=== PATIENT | female | born 1990 | race Caucasian/White ===

== ENCOUNTER 2019-03-13 21:14 | Emergency (ER) | payer SELFPAY ==
[2019-03-13 21:17] VITALS: BP 120/78; PULSE 100; RESP 16; TEMP 36.6; O2SAT 99; BMI 31.2
--- NOTE | 2019-03-13 21:20 | DI.RAD.S_ITS ---
PROCEDURE: XR ANKLE RT MIN 3V INDICATIONS: felt a pop in ankle, pain TECHNIQUE: 3 views of the ankle were acquired. COMPARISON: None. FINDINGS: Bones: No fractures or dislocations. Ankle mortise is normally aligned. No suspicious bony lesions. Soft tissues: No tibiotalar joint effusion. Achilles tendon appears normal. IMPRESSION: No acute radiographic findings. If pain persists, repeat study in 5-7 days is recommended to exclude occult fracture. Dictated by: Seble Yeh M.D. on 03/13/2019 at 21:54 Approved by: Seble Yeh M.D. on 03/13/2019 at 21:54
--- NOTE | 2019-03-13 21:55 | PC.NURSE ---
Pt Hx left ankle injury x 2 months ago. had an xray and wore an brace for 6 weeks. C/O popping sound today with pain 03/18. works on her feet all day and her ankle has never been the same. NAD. Talking on her phone. X ray taken. Will continue to monitor.
--- NOTE | 2019-03-13 23:09 | ED.LOWEXIN ---
HPI - Extremity Injury (Lower) General Chief Complaint: Extremity Injury, Lower Stated Complaint: RIGHT ANKLE PAIN Time Seen by Provider: 03/13/19 21:24 Source: patient Mode of arrival: ambulatory Limitations: no limitations History of Present Illness HPI Narrative: 28-year-old female nonsmoker presents with a chief complaint of left ankle pain which has been present since an original injury in August. She has had multiple sets of x-rays without any obvious findings and has episodes where she seems to be without symptoms and then a minimal repeat injury causes pain and swelling again of her left ankle. Her pain is worse with motion and improves with rest. She denies other injury. She denies any numbness, tingling or weakness. She denies any specific injury this time around but complains of pain with ambulating MD complaint: ankle injury Onset (ago): month(s) Type of Injury: unknown Place: other Severity: moderate Relieving factors: rest Exacerbating factors: weight bearing and movement Associated symptoms: swelling Other symptoms: none Related Data Allergies Allergy/AdvReac Type Severity Reaction Status Date / Time CODEINE Allergy Unknown Uncoded 03/13/19 21:20 PCN (PENICILLIN) Allergy Unknown Uncoded 03/13/19 21:20 Review of Systems Constitutional Denies chills, Denies fever(s), Denies lethargy and Denies weakness Eyes Denies change in vision, Denies eye discharge, Denies irritation and Denies loss of vision ENT Ears, Nose, Mouth, and Throat: Denies change in voice, Denies neck pain and Denies sore throat Cardiovascular Denies chest pain, Denies irregular heart rhythm, Denies lightheadedness, Denies palpitations, Denies dyspnea, Denies dyspnea on exertion and Denies orthopnea Respiratory Denies cough, Denies dyspnea, Denies dyspnea on exertion and Denies wheezing Gastrointestinal Gastrointestinal: Denies abdominal pain, Denies change in bowel habits, Denies diarrhea, Denies nausea and Denies vomiting Genitourinary Denies hematuria, Denies flank pain, Denies urinary incontinence and Denies urinary urgency Musculoskeletal Reports joint swelling, Reports limited range of motion and Denies neck pain Integumentary/Breasts Denies pruritus, Denies erythema, Denies rash and Denies wounds Neurologic Denies confusion, Denies loss of vision and Denies weakness Psychiatric Denies anxiety, Denies confusion, Denies depression, Denies homicidal ideation and Denies suicidal ideation Endocrine Denies palpitations Hematologic/Lymphatic Denies easy bruising Allergic/Immunologic Denies wheezing PFSH Social History Smoking Status: Current every day smoker Social History Smoking Status: Current every day smoker Exam Narrative Exam Narrative: GEN: AOx3 and in mild distress EYES: Pupils are equal, round, and reactive to light and accommodation. Extraoccular muscles are intact bilaterally. There is no subconjunctival hemorrhage or exudate. CHEST: Lungs are clear to auscultation bilaterally and free of wheezes, rales, or rhonchi. Heart rate is regular rhythm, there are no murmurs, clicks, rubs, or gallops. There is no chest wall tenderness. ABD: Abdomen is soft and nontender. There is no guarding or rebound. Bowel sounds are normal in all 4 quadrants. There is no mass or organomegaly. EXT: Pain with palpation of left ankle distal to lateral malleolus, no obvious deformity but minimal swelling present Full painless ROM of all extremities with no loss of sensation or strength. SKIN: Warm, pink, and dry. No erythema or rash Initial Vital Signs Initial Vital Signs: Vital Signs Temperature 97.8 F 03/13/19 21:17 Pulse Rate 100 H 03/13/19 21:17 Respiratory Rate 16 03/13/19 21:17 Blood Pressure 120/78 03/13/19 21:17 Pulse Oximetry 99 03/13/19 21:17 Course Orders Ordered: ED Orders 03/13/19 21:20 XR ankle RT min 3V Stat Vital Signs - 8 hr 03/13/19 23:31 Pulse Rate 71 Respiratory Rate 12 Blood Pressure 96/81 Pulse Oximetry 99 MDM - Extremity Injury (Lower) Imaging Data Ankle Xray: Radiologist's impression: [address] [address] XRay Report Signed Patient: Nazanin Lugo [facility]#: [id number] : 1990Acct:[id number] Age/Sex: 28 / FDate of Service: 03/13/19 Loc: ED Accession Number: [id number] Procedure: XR ankle RT min 3V Ordering Provider: Mustapha Torres D.O. PROCEDURE: XR ANKLE RT MIN 3V INDICATIONS: felt a pop in ankle, pain TECHNIQUE: 3 views of the ankle were acquired. COMPARISON: None. FINDINGS: Bones: No fractures or dislocations. Ankle mortise is normally aligned. No suspicious bony lesions. Soft tissues: No tibiotalar joint effusion. Achilles tendon appears normal. IMPRESSION: No acute radiographic findings. If pain persists, repeat study in 5-7 days is recommended to exclude occult fracture. Dictated by: Seble Yeh M.D. on 03/13/2019 at 21:54 Approved by: Seble Yeh M.D. on 03/13/2019 at 21:54 Discharge Plan Departure Patient Disposition: Home Clinical Impression: Ankle sprain and strain Discharge Date/Time: 03/13/19 23:32 Interventions: ED Discharge Assessment Last Done: 03/13/19 23:31 Instructions: DI for Ankle Sprain, DI for Ankle Pain Activity Restrictions/Additional Instructions: *You have been diagnosed with [ankle pain and sprain] *What to do: *Take medications as directed *Follow up with your primary care provider in 2-3 days, call for an appointment. Let them know you were seen in the Emergency Department and that we ask that you be seen in follow up *Return to ER if you should have any new, worsening or concerning symptoms Referrals: [facility] [Outside] Lian Leal MD [Physician] -
[2019-03-13 23:31] VITALS: BP 96/81; PULSE 71; RESP 12; O2SAT 99
--- NOTE | 2019-03-14 06:24 | ED_ITS ---
HPI - Extremity Injury (Lower) General Chief Complaint: Extremity Injury, Lower Stated Complaint: RIGHT ANKLE PAIN Time Seen by Provider: 03/13/19 21:24 Source: patient Mode of arrival: ambulatory Limitations: no limitations History of Present Illness HPI Narrative: 28-year-old female nonsmoker presents with a chief complaint of left ankle pain which has been present since an original injury in August. She has had multiple sets of x-rays without any obvious findings and has episodes where she seems to be without symptoms and then a minimal repeat injury causes pain and swelling again of her left ankle. Her pain is worse with motion and improves with rest. She denies other injury. She denies any numbness, tingling or weakness. She denies any specific injury this time around but complains of pain with ambulating MD complaint: ankle injury Onset (ago): month(s) Type of Injury: unknown Place: other Severity: moderate Relieving factors: rest Exacerbating factors: weight bearing and movement Associated symptoms: swelling Other symptoms: none Related Data Allergies Allergy/AdvReac Type Severity Reaction Status Date / Time CODEINE Allergy Unknown Uncoded 03/13/19 21:20 PCN (PENICILLIN) Allergy Unknown Uncoded 03/13/19 21:20 Review of Systems Constitutional Denies chills, Denies fever(s), Denies lethargy and Denies weakness Eyes Denies change in vision, Denies eye discharge, Denies irritation and Denies loss of vision ENT Ears, Nose, Mouth, and Throat: Denies change in voice, Denies neck pain and Denies sore throat Cardiovascular Denies chest pain, Denies irregular heart rhythm, Denies lightheadedness, Denies palpitations, Denies dyspnea, Denies dyspnea on exertion and Denies orthopnea Respiratory Denies cough, Denies dyspnea, Denies dyspnea on exertion and Denies wheezing Gastrointestinal Gastrointestinal: Denies abdominal pain, Denies change in bowel habits, Denies diarrhea, Denies nausea and Denies vomiting Genitourinary Denies hematuria, Denies flank pain, Denies urinary incontinence and Denies urinary urgency Musculoskeletal Reports joint swelling, Reports limited range of motion and Denies neck pain Integumentary/Breasts Denies pruritus, Denies erythema, Denies rash and Denies wounds Neurologic Denies confusion, Denies loss of vision and Denies weakness Psychiatric Denies anxiety, Denies confusion, Denies depression, Denies homicidal ideation and Denies suicidal ideation Endocrine Denies palpitations Hematologic/Lymphatic Denies easy bruising Allergic/Immunologic Denies wheezing PFSH Social History Smoking Status: Current every day smoker Social History Smoking Status: Current every day smoker Exam Narrative Exam Narrative: GEN: AOx3 and in mild distress EYES: Pupils are equal, round, and reactive to light and accommodation. Extraoccular muscles are intact bilaterally. There is no subconjunctival hemorrhage or exudate. CHEST: Lungs are clear to auscultation bilaterally and free of wheezes, rales, or rhonchi. Heart rate is regular rhythm, there are no murmurs, clicks, rubs, or gallops. There is no chest wall tenderness. ABD: Abdomen is soft and nontender. There is no guarding or rebound. Bowel sounds are normal in all 4 quadrants. There is no mass or organomegaly. EXT: Pain with palpation of left ankle distal to lateral malleolus, no obvious deformity but minimal swelling present Full painless ROM of all extremities with no loss of sensation or strength. SKIN: Warm, pink, and dry. No erythema or rash Initial Vital Signs Initial Vital Signs: Vital Signs Temperature 97.8 F 03/13/19 21:17 Pulse Rate 100 H 03/13/19 21:17 Respiratory Rate 16 03/13/19 21:17 Blood Pressure 120/78 03/13/19 21:17 Pulse Oximetry 99 03/13/19 21:17 Course Orders Ordered: ED Orders 03/13/19 21:20 XR ankle RT min 3V Stat Vital Signs - 8 hr 03/13/19 23:31 Pulse Rate 71 Respiratory Rate 12 Blood Pressure 96/81 Pulse Oximetry 99 MDM - Extremity Injury (Lower) Imaging Data Ankle Xray: Radiologist's impression: [address] [address] XRay Report Signed Patient: Nazanin Lugo [facility]#: [id number] : 1990Acct:[id number] Age/Sex: 28 / FDate of Service: 03/13/19 Loc: ED Accession Number: [id number] Procedure: XR ankle RT min 3V Ordering Provider: Mustapha Torres D.O. PROCEDURE: XR ANKLE RT MIN 3V INDICATIONS: felt a pop in ankle, pain TECHNIQUE: 3 views of the ankle were acquired. COMPARISON: None. FINDINGS: Bones: No fractures or dislocations. Ankle mortise is normally aligned. No suspicious bony lesions. Soft tissues: No tibiotalar joint effusion. Achilles tendon appears normal. IMPRESSION: No acute radiographic findings. If pain persists, repeat study in 5-7 days is recommended to exclude occult fracture. Dictated by: Seble Yeh M.D. on 03/13/2019 at 21:54 Approved by: Seble Yeh M.D. on 03/13/2019 at 21:54 Discharge Plan Departure Patient Disposition: Home Clinical Impression: Ankle sprain and strain Discharge Date/Time: 03/13/19 23:32 Interventions: ED Discharge Assessment Last Done: 03/13/19 23:31 Instructions: DI for Ankle Sprain, DI for Ankle Pain Activity Restrictions/Additional Instructions: *You have been diagnosed with [ankle pain and sprain] *What to do: *Take medications as directed *Follow up with your primary care provider in 2-3 days, call for an appointment. Let them know you were seen in the Emergency Department and that we ask that you be seen in follow up *Return to ER if you should have any new, worsening or concerning symptoms Referrals: [facility] [Outside] Lian Leal MD [Physician] -
== END 2019-03-13 23:32 | disposition home or self-care (01) ==
PROVIDERS: Emergency Provider Emergency Medicine
DX: S93.401A Sprain of unspecified ligament of right ankle, initial encounter (principal)
CPT/HCPCS: 73610; 99282; 99283

== ENCOUNTER 2021-07-01 16:52 | Emergency (ER) | payer OTHER, MEDICAID, SELFPAY ==
[2021-07-01 17:09] VITALS: BP 115/78; PULSE 115; RESP 22; TEMP 37.1; O2SAT 98; BMI 31.2
--- NOTE | 2021-07-01 18:00 | ED.FEMALEGU ---
HPI - Female Genitourinary <SHONA Sotelo Last Filed: 07/01/21 19:51> General Chief complaint: Urogenital-Female Stated complaint: POSS STREP/UTI Time Seen by Provider: 07/01/21 17:35 Source: patient Mode of arrival: Ambulatory Limitations: no limitations History of Present Illness HPI Narrative: Patient is a 31-year-old female presenting to the emergency department today for an evaluation of sore throat and dysuria that began yesterday. Patient reports pain in her shoulder that is worse with swallowing and an intermittent sharp pain with urination. She also reports symptoms of a T-max fever of 102? F today, chills, right lower quadrant abdominal pain with here, and nausea. No cough, vomiting, constipation, diarrhea, nasal congestion reported. No other concerns reported this time. Related Data Allergies Allergy/AdvReac Type Severity Reaction Status Date / Time codeine Allergy Verified 07/01/21 17:09 Penicillins Allergy Verified 07/01/21 17:09 Review of Systems <Sourav Gould PA-C - Last Filed: 07/01/21 19:51> Constitutional Constitutional: Reports chills, Reports fever(s), Denies lethargy and Denies weakness ENT Ears, Nose, Mouth, and Throat: Denies change in voice, Denies neck pain and Reports sore throat Cardiovascular Cardiovascular: Denies chest pain, Denies irregular heart rhythm, Denies lightheadedness, Denies palpitations, Denies dyspnea, Denies dyspnea on exertion and Denies orthopnea Respiratory Respiratory: Denies cough, Denies dyspnea, Denies dyspnea on exertion and Denies wheezing Gastrointestinal Gastrointestinal: Reports abdominal pain (Right lower quadrant), Denies change in bowel habits, Denies diarrhea, Reports nausea and Denies vomiting Musculoskeletal Musculoskeletal: Denies neck pain Integumentary/Breasts Skin/Breast: Denies pruritus, Denies erythema, Denies rash and Denies wounds Neurologic Neurologic: Denies weakness Endocrine Endocrine: Denies palpitations Allergic/Immunologic Allergic/Immunologic: Denies wheezing Patient History <SHONA Sotelo Last Filed: 07/01/21 19:51> alcohol intake frequency: a few times a month Substance Use Type: marijuana Exam <SHONA Sotelo Last Filed: 07/01/21 19:51> Narrative Exam Narrative: GENERAL: 31 year old patient appears stated age. Well-developed patient, in mild distress. HEAD: Atraumatic. Normocephalic. EYES: Pupils equal round and reactive. Extraocular motions intact. No scleral icterus. No injection or drainage. ENT: Nose without bleeding, purulent drainage. Throat without erythema, tonsillar hypertrophy or exudate. Airway patent. NECK: Trachea midline. Non tender CARDIOVASCULAR: Regular rate and rhythm without murmurs, gallops, or rubs. RESPIRATORY: Clear to auscultation. Breath sounds equal bilaterally. No wheezes, rales, or rhonchi. GASTROINTESTINAL: Abdomen soft, nondistended. Tenderness to palpation appreciated of the bilateral lower quadrants. Guarding appreciated at the left lower quadrant. EXTREMITIES: No edema or joint tenderness. BACK: Nontender without deformity or crepitance. No flank tenderness. NEURO: AOx3. SKIN: No rash or erythema of visible areas Initial Vital Signs Initial Vital Signs: Vital Signs Temperature 98.8 F 07/01/21 17:09 Pulse Rate 115 H 07/01/21 17:09 Respiratory Rate 22 07/01/21 17:09 Blood Pressure 115/78 07/01/21 17:09 Pulse Oximetry 98 07/01/21 17:09 <Jaspreet Baker DO - Last Filed: 07/01/21 20:43> Initial Vital Signs Initial Vital Signs: Vital Signs Temperature 98.8 F 07/01/21 17:09 Pulse Rate 115 H 07/01/21 17:09 Respiratory Rate 22 07/01/21 17:09 Blood Pressure 115/78 07/01/21 17:09 Pulse Oximetry 98 07/01/21 17:09 Course <Sourav Gould PA-C - Last Filed: 07/01/21 19:51> Course Course Narrative: Patient is a 31-year-old female presenting to the emergency department today for an evaluation of sore throat and dysuria that began yesterday. Urinalysis, G and C ordered. Rapid strep negative in ER, negative . Due to patient's elevated heart rate and fever will order CBC, CMP, lactate, blood cultures, respiratory panel, and CT of the abdomen and pelvis. Orders Ordered: ED Orders 07/01/21 17:30 COVID19 -Nasal swab/Pre-Proc Stat 07/01/21 17:57 Chlamydia Gonorrhea PCR -URINE Stat Urinalysis and Microscopic Stat 07/01/21 18:55 Complete Blood Count AUTO DIFF Stat Comprehensive Metabolic Panel Stat Lactate (Lactic Acid) Stat Respiratory Panel (Film Array) Stat 07/01/21 19:20 Blood Culture Stat 07/01/21 19:40 CT abdomen pelvis w con Stat Discontinued Medications Acetaminophen (Acetaminophen 325 Mg Tablet) 650 mg PO NOW ONE Stop: 07/01/21 19:05 Last Admin: 07/01/21 19:13 Dose: 650 mg Documented by: SYLVIA Reevaluation(s) Reevaluation #1: Patient states that she is feeling better overall but notes that she has been sweating patent. Lung still clear to auscultation on exam. Tympanic membranes clear bilaterally and are free of erythema or bulging Vital Signs Vital signs: Vital Signs - 8 hr 07/01/21 17:09 07/01/21 19:00 07/01/21 20:03 Temperature 98.8 F 102.4 F H 100.4 F H Pulse Rate 115 H 108 H 98 H Respiratory Rate 22 20 16 Blood Pressure 115/78 133/78 115/74 Pulse Oximetry 98 96 97 07/01/21 20:25 07/01/21 20:39 Temperature 100.4 F H 99.3 F Pulse Rate 103 H Respiratory Rate 18 Blood Pressure 110/74 Pulse Oximetry 97 <Jaspreet Baker, - Last Filed: 07/01/21 20:43> Orders Ordered: ED Orders 07/01/21 17:30 COVID19 -Nasal swab/Pre-Proc Stat 07/01/21 17:57 Chlamydia Gonorrhea PCR -URINE Stat Urinalysis and Microscopic Stat 07/01/21 18:55 Complete Blood Count AUTO DIFF Stat Comprehensive Metabolic Panel Stat Lactate (Lactic Acid) Stat Respiratory Panel (Film Array) Stat 07/01/21 19:20 Blood Culture Stat 07/01/21 19:40 CT abdomen pelvis w con Stat Discontinued Medications Acetaminophen (Acetaminophen 325 Mg Tablet) 650 mg PO NOW ONE Stop: 07/01/21 19:05 Last Admin: 07/01/21 19:13 Dose: 650 mg Documented by: SYLVIA Vital Signs Vital signs: Vital Signs - 8 hr 07/01/21 17:09 07/01/21 19:00 07/01/21 20:03 Temperature 98.8 F 102.4 F H 100.4 F H Pulse Rate 115 H 108 H 98 H Respiratory Rate 22 20 16 Blood Pressure 115/78 133/78 115/74 Pulse Oximetry 98 96 97 07/01/21 20:25 07/01/21 20:39 Temperature 100.4 F H 99.3 F Pulse Rate 103 H Respiratory Rate 18 Blood Pressure 110/74 Pulse Oximetry 97 MDM - Female Genitourinary <Sourav Gould PA-C - Last Filed: 07/01/21 19:51> Lab Data Result diagrams: 07/01/21 18:55 07/01/21 18:55 Labs: Lab Results 07/01/21 07/01/21 07/01/21 Range/Units 17:30 17:57 17:57 WBC (4.5-11.0) X10^3/uL RBC (4.0-5.2) X10^6/uL Hgb (12.0-16.0) g/dL Hct (36-46) % MCV (80-100) fL MCH (26-34) PG MCHC (30-36) % RDW (11.6-14.8) % Plt Count (150-400) X10^3/uL Neut % (Auto) (50-75) % Lymph % (Auto) (25-40) % [place] % (Auto) (3-14) % Eos % (Auto) (2-4) % Baso % (Auto) (0-2) % Neut # (Auto) (6938-9895) /uL Lymph # (Auto) (1483-3704) /uL [place] # (Auto) (0-900) /uL Eos # (Auto) (0-450) /uL Baso # (Auto) (0-100) /uL Sodium (137-145) mmol/L Potassium (3.4-5.1) mmol/L Chloride (98-107) mmol/L Carbon Dioxide (22-32) mmol/L BUN (7-17) mg/dL Creatinine (0.52-1.04) mg/dL Estimated GFR (>60) mL/min BUN/Creatinine Ratio (6-22) Glucose (70-100) mg/dL Lactate (0.7-2.1) mmol/L Calcium (8.4-10.2) mg/dL Total Bilirubin (0.2-1.3) mg/dL AST (14-36) IU/L ALT (<35) IU/L Alkaline Phosphatase (38-126) U/L Total Protein (6.3-8.2) g/dL Albumin (3.5-5.0) g/dL Globulin (1.7-4.1) g/dL Albumin/Globulin Ratio (1.0-2.8) Urine Color Yellow Urine Appearance Clear Urine pH 8.0 (4.5-8.0) Ur Specific [place] 1.015 (1.000-1.035) Urine Protein Trace H (Negative) Urine Glucose (UA) Trace H (Negative) g/dL Urine Ketones Negative (NEGATIVE) Urine Occult Blood Negative (Negative) Urine Nitrate Negative (Negative) Urine Bilirubin Negative (NEGATIVE) Urine Urobilinogen 1.0 (0.2) E.U./dL Ur Leukocyte Esterase Negative (NEGATIVE) Urine RBC None seen (0-5/HPF) Urine WBC None seen (0-5/HPF) Ur Squamous Epith Cells 1-5 /hpf (0-5/HPF) Amorphous Sediment 3+ Urine Bacteria None seen (None) Ur Culture Indicated? Cult not indicated Ur Chlamydia DNA (PCR) Not detected SARS-CoV-2 (PCR) Negative (Negative) N gonorrhoeae DNA (PCR) Not detected 07/01/21 07/01/21 07/01/21 Range/Units 18:55 18:55 18:55 WBC 14.1 H (4.5-11.0) X10^3/uL RBC 5.32 H (4.0-5.2) X10^6/uL Hgb 17.7 H (12.0-16.0) g/dL Hct 50.6 H (36-46) % MCV 95.1 (80-100) fL MCH 33.3 (26-34) PG MCHC 35.0 (30-36) % RDW 13.0 (11.6-14.8) % Plt Count 187 (150-400) X10^3/uL Neut % (Auto) 78.8 H (50-75) % Lymph % (Auto) 12.0 L (25-40) % [place] % (Auto) 8.8 (3-14) % Eos % (Auto) 0.2 L (2-4) % Baso % (Auto) 0.2 (0-2) % Neut # (Auto) 45631 H (8987-4205) /uL Lymph # (Auto) 1700 (0661-2267) /uL [place] # (Auto) 1200 H (0-900) /uL Eos # (Auto) 0 (0-450) /uL Baso # (Auto) 0 (0-100) /uL Sodium 135 L (137-145) mmol/L Potassium 4.0 (3.4-5.1) mmol/L Chloride 102 (98-107) mmol/L Carbon Dioxide 25 (22-32) mmol/L BUN 7 (7-17) mg/dL Creatinine 0.72 (0.52-1.04) mg/dL Estimated GFR > 60.0 (>60) mL/min BUN/Creatinine Ratio 9.7 (6-22) Glucose 93 (70-100) mg/dL Lactate 0.8 (0.7-2.1) mmol/L Calcium 10.6 H (8.4-10.2) mg/dL Total Bilirubin 0.6 (0.2-1.3) mg/dL AST 32 (14-36) IU/L ALT 15 (<35) IU/L Alkaline Phosphatase 89 (38-126) U/L Total Protein 8.3 H (6.3-8.2) g/dL Albumin 4.8 (3.5-5.0) g/dL Globulin 3.5 (1.7-4.1) g/dL Albumin/Globulin Ratio 1.4 (1.0-2.8) Urine Color Urine Appearance Urine pH (4.5-8.0) Ur Specific [place] (1.000-1.035) Urine Protein (Negative) Urine Glucose (UA) (Negative) g/dL Urine Ketones (NEGATIVE) Urine Occult Blood (Negative) Urine Nitrate (Negative) Urine Bilirubin (NEGATIVE) Urine Urobilinogen (0.2) E.U./dL Ur Leukocyte Esterase (NEGATIVE) Urine RBC (0-5/HPF) Urine WBC (0-5/HPF) Ur Squamous Epith Cells (0-5/HPF) Amorphous Sediment Urine Bacteria (None) Ur Culture Indicated? Ur Chlamydia DNA (PCR) SARS-CoV-2 (PCR) (Negative) N gonorrhoeae DNA (PCR) Point of Care Testing Test Results Negative Rapid Strep A Negative Urine Dip Bedside Urine Glucose Negative Bedside Urine Bilirubin - Negative Bedside Urine Ketone - Negative Urine Specific [place] 1.015 Bedside Urine Occult Blood - Negative Bedside Urine pH 8 Bedside Urine Protein - Negative Bedside Urine Urobilinogen +/- 1mg Bedside Urine Nitrite - Negative Bedside Urine Leukocytes - Negative Esterase MDM Narrative Medical decision making narrative: Patient is a 31-year-old female presenting to the emergency department today for an evaluation of sore throat and dysuria that began yesterday. To consider strep pharyngitis versus viral pharyngitis versus urinary tract infection versus kidney stone versus gastritis <Jaspreet Baker DO - Last Filed: 07/01/21 20:43> Lab Data Attestation: I reviewed the patient's lab results. Labs: Lab Results 07/01/21 07/01/21 07/01/21 Range/Units 17:30 17:57 17:57 WBC (4.5-11.0) X10^3/uL RBC (4.0-5.2) X10^6/uL Hgb (12.0-16.0) g/dL Hct (36-46) % MCV (80-100) fL MCH (26-34) PG MCHC (30-36) % RDW (11.6-14.8) % Plt Count (150-400) X10^3/uL Neut % (Auto) (50-75) % Lymph % (Auto) (25-40) % [place] % (Auto) (3-14) % Eos % (Auto) (2-4) % Baso % (Auto) (0-2) % Neut # (Auto) (1494-8940) /uL Lymph # (Auto) (4327-4485) /uL [place] # (Auto) (0-900) /uL Eos # (Auto) (0-450) /uL Baso # (Auto) (0-100) /uL Sodium (137-145) mmol/L Potassium (3.4-5.1) mmol/L Chloride (98-107) mmol/L Carbon Dioxide (22-32) mmol/L BUN (7-17) mg/dL Creatinine (0.52-1.04) mg/dL Estimated GFR (>60) mL/min BUN/Creatinine Ratio (6-22) Glucose (70-100) mg/dL Lactate (0.7-2.1) mmol/L Calcium (8.4-10.2) mg/dL Total Bilirubin (0.2-1.3) mg/dL AST (14-36) IU/L ALT (<35) IU/L Alkaline Phosphatase (38-126) U/L Total Protein (6.3-8.2) g/dL Albumin (3.5-5.0) g/dL Globulin (1.7-4.1) g/dL Albumin/Globulin Ratio (1.0-2.8) Urine Color Yellow Urine Appearance Clear Urine pH 8.0 (4.5-8.0) Ur Specific [place] 1.015 (1.000-1.035) Urine Protein Trace H (Negative) Urine Glucose (UA) Trace H (Negative) g/dL Urine Ketones Negative (NEGATIVE) Urine Occult Blood Negative (Negative) Urine Nitrate Negative (Negative) Urine Bilirubin Negative (NEGATIVE) Urine Urobilinogen 1.0 (0.2) E.U./dL Ur Leukocyte Esterase Negative (NEGATIVE) Urine RBC None seen (0-5/HPF) Urine WBC None seen (0-5/HPF) Ur Squamous Epith Cells 1-5 /hpf (0-5/HPF) Amorphous Sediment 3+ Urine Bacteria None seen (None) Ur Culture Indicated? Cult not indicated Ur Chlamydia DNA (PCR) Not detected SARS-CoV-2 (PCR) Negative (Negative) N gonorrhoeae DNA (PCR) Not detected 07/01/21 07/01/21 07/01/21 Range/Units 18:55 18:55 18:55 WBC 14.1 H (4.5-11.0) X10^3/uL RBC 5.32 H (4.0-5.2) X10^6/uL Hgb 17.7 H (12.0-16.0) g/dL Hct 50.6 H (36-46) % MCV 95.1 (80-100) fL MCH 33.3 (26-34) PG MCHC 35.0 (30-36) % RDW 13.0 (11.6-14.8) % Plt Count 187 (150-400) X10^3/uL Neut % (Auto) 78.8 H (50-75) % Lymph % (Auto) 12.0 L (25-40) % [place] % (Auto) 8.8 (3-14) % Eos % (Auto) 0.2 L (2-4) % Baso % (Auto) 0.2 (0-2) % Neut # (Auto) 30924 H (4584-0993) /uL Lymph # (Auto) 1700 (5084-0281) /uL [place] # (Auto) 1200 H (0-900) /uL Eos # (Auto) 0 (0-450) /uL Baso # (Auto) 0 (0-100) /uL Sodium 135 L (137-145) mmol/L Potassium 4.0 (3.4-5.1) mmol/L Chloride 102 (98-107) mmol/L Carbon Dioxide 25 (22-32) mmol/L BUN 7 (7-17) mg/dL Creatinine 0.72 (0.52-1.04) mg/dL Estimated GFR > 60.0 (>60) mL/min BUN/Creatinine Ratio 9.7 (6-22) Glucose 93 (70-100) mg/dL Lactate 0.8 (0.7-2.1) mmol/L Calcium 10.6 H (8.4-10.2) mg/dL Total Bilirubin 0.6 (0.2-1.3) mg/dL AST 32 (14-36) IU/L ALT 15 (<35) IU/L Alkaline Phosphatase 89 (38-126) U/L Total Protein 8.3 H (6.3-8.2) g/dL Albumin 4.8 (3.5-5.0) g/dL Globulin 3.5 (1.7-4.1) g/dL Albumin/Globulin Ratio 1.4 (1.0-2.8) Urine Color Urine Appearance Urine pH (4.5-8.0) Ur Specific [place] (1.000-1.035) Urine Protein (Negative) Urine Glucose (UA) (Negative) g/dL Urine Ketones (NEGATIVE) Urine Occult Blood (Negative) Urine Nitrate (Negative) Urine Bilirubin (NEGATIVE) Urine Urobilinogen (0.2) E.U./dL Ur Leukocyte Esterase (NEGATIVE) Urine RBC (0-5/HPF) Urine WBC (0-5/HPF) Ur Squamous Epith Cells (0-5/HPF) Amorphous Sediment Urine Bacteria (None) Ur Culture Indicated? Ur Chlamydia DNA (PCR) SARS-CoV-2 (PCR) (Negative) N gonorrhoeae DNA (PCR) Point of Care Testing Test Results Negative Rapid Strep A Negative Urine Dip Bedside Urine Glucose Negative Bedside Urine Bilirubin - Negative Bedside Urine Ketone - Negative Urine Specific [place] 1.015 Bedside Urine Occult Blood - Negative Bedside Urine pH 8 Bedside Urine Protein - Negative Bedside Urine Urobilinogen +/- 1mg Bedside Urine Nitrite - Negative Bedside Urine Leukocytes - Negative Esterase Imaging Data CT scan - abdomen/pelvis: Radiologist's Impression: [address] [address] [address] Scan Report Signed Patient: Nazanin Lugo MR#: [id number] : 1990 Acct:[id number] Age/Sex: 31 / F Date of Service: 07/01/21 Loc: ED Accession Number: [id number] ?? Procedure: CT abdomen pelvis w con Ordering Provider: Sourav Gould P.A-C PROCEDURE:? CT ABDOMEN PELVIS W CON ? INDICATIONS:? Abdominal pain, elevated WBC ? TECHNIQUE:? After the administration of intravenous contrast, axial sections acquired from the lung bases to the pubic symphysis.? Coronal and sagittal reformats were performed.? For radiation dose reduction, the following was used:? automated exposure control, adjustment of mA and/or kV according to patient size.? ? COMPARISON:? None. ? FINDINGS:? Image quality:? Excellent.? ? Lung bases:? Unremarkable. Heart:? No significant findings. ? ABDOMEN: Liver:? There is moderate hepatic steatosis.? No discrete hepatic lesion..? ? Gallbladder:? Within normal limits. Biliary ducts:? Unremarkable.? ? Pancreas:? Unremarkable.? ? Spleen:? Unremarkable.? ? Adrenal Glands:? Unremarkable.? ? Kidneys and Ureters:? Unremarkable.? ? ? Stomach and Bowel:? Stomach, small bowel loops, and colon are unremarkable.? Appendix is visualized and is within normal limits. Peritoneum:? No abnormal intraperitoneal fluid.? No free air.? ? Ventral Wall: ? No hernias.? Abdominal Nodes:? No retroperitoneal or mesenteric adenopathy by size criteria.? Vessels:? Aorta and inferior vena cava are normal in size.? ? PELVIS: Pelvic Organs:? Intrauterine device is seen.? There are suggestion of small bilateral ovarian cysts measures up to 1.3 cm in size in left ovary. Bladder:? Unremarkable.? ? Pelvic Nodes: No enlarged lymph nodes.? Miscellaneous: No hernias are seen. ? ? ? Bones:? Unremarkable.? IMPRESSION:? 1. No bowel obstruction or abnormal bowel wall thickening.? Normal appendix.? No free fluid or free air. 2. Intrauterine device is seen.? Suggestion of small bilateral ovarian cysts. 3. Hepatic steatosis, no discrete hepatic lesion. ? ? Dictated by: Chester Buchanan M.D. on 07/01/2021 at 20:14 ? ? Approved by: Chester Buchanan M.D. on 07/01/2021 at 20:17? MDM Narrative Medical decision making narrative: Patient is a 31-year-old female presenting to the emergency department today for an evaluation of sore throat and dysuria that began yesterday. To consider strep pharyngitis versus viral pharyngitis versus urinary tract infection versus kidney stone versus gastritis Dr Baker: Received turned over. Reviewed patient's history and physical. Performed my own independent exam. Patient has no headache. No neck pain. Low concern for meningitis. Rapid strep is negative. Her oropharynx is unremarkable. Has no cough. No shortness of breath. Low suspicion for pneumonia. The CT scan of her abdomen shows no signs of appendicitis. Urinalysis shows no signs of an infection. She has had some alternating diarrhea and constipation. No recent travel. No recent antibiotic use. No rashes. Unsure the exact etiology of the patient's symptoms. No indication for surgical consultation. No indication for antibiotics. Patient is COVID negative. Patient wanted to leave prior to the result of her respiratory panel and I felt that any positive result so this would not change the current plan for discharge home with symptomatic treatment. She was given return precautions and follow-up instructions. She expressed understanding and agreement. Discharge Plan Departure Patient Disposition: Home Clinical Impression: Fever, Sore throat, Abdominal pain Instructions: DI for Abdominal Pain-Adult Activity Restrictions/Additional Instructions: Your workup here in the emergency department is very reassuring. You opted to leave prior to your respiratory panel resulting. I recommend that you continue with Tylenol/ibuprofen for any fevers or body aches. Contact your primary doctor for a follow-up. Return to the emergency department for any new or worsening symptoms
[2021-07-01 18:04] LABS: Appearance Urine UA CLEAR; Bilirubin Urine UA NEGATIVE (NEGATIVE); Color Urine UA YELLOW; Glucose Urine UA TRACE g/dL (Negative); Ketones Urine UA NEGATIVE (NEGATIVE); Leukocyte Esterase Urine UA NEGATIVE (NEGATIVE); Nitrite Urine UA NEGATIVE (Negative); Occult Blood Urine UA NEGATIVE (Negative); Protein Urine UA TRACE (Negative); Specific Gravity Urine UA 1.015 (1.000-1.035)
[2021-07-01 18:17] LABS: RBC Urine None Seen (0-5/HPF); WBC Urine None Seen (0-5/HPF)
[2021-07-01 18:18] LABS: Amorphous Sediment Urine 3+; Bacteria Urine None Seen; Culture Indicated Urine Cult Not Indicated; Squamous Epithelial Cell Urine 1-5 /HPF (0-5/HPF)
[2021-07-01 18:21] LABS: COVID19 -Nasal RAPID Negative (Negative)
[2021-07-01 19:00] VITALS: BP 133/78; PULSE 108; RESP 20; TEMP 39.1; O2SAT 96
[2021-07-01] MEDS: ACETAMINOPHEN 325 MG TABLET 650 MG PO (19:13)
[2021-07-01 19:17] LABS: Add Manual Diff / Slide Review NO; Basophils Absolute Auto 0 /uL (0-100); Basophils Percent Auto 0.2 % (0-2); Eosinophils Absolute Auto 0 /uL (0-450); Eosinophils Percent Auto 0.2 % (2-4); Hematocrit 50.6 % (36-46); Hemoglobin 17.7 g/dL (12.0-16.0); Lymphocytes Absolute Auto 1700 /uL (1100-4500); Mean Corpuscular Hemoglobin 33.3 PG (26-34); Mean Corpuscular Volume 95.1 fL (80-100); Monocytes Absolute Auto 1200 /uL (0-900); Monocytes Percent Auto 8.8 % (3-14); Neutrophils Absolute Auto 11100 /uL (1500-7000); Neutrophils Percent Auto 78.8 % (50-75); Platelet Count 187 X10^3/uL (150-400); Red Blood Cell Count 5.32 X10^6/uL (4.0-5.2); White Blood Cell Count 14.1 X10^3/uL (4.5-11.0)
[2021-07-01 19:33] LABS: Urine N gonorrhoeae NOT DETECTED
[2021-07-01 19:38] LABS: Lactate (Lactic Acid) 0.8 mmol/L (0.7-2.1)
[2021-07-01 19:39] LABS: Alanine Aminotransferase 15 IU/L (<35); Albumin 4.8 g/dL (3.5-5.0); Albumin Globulin Ratio 1.4 (1.0-2.8); Alkaline Phosphatase 89 U/L (38-126); Aspartate Aminotransferase 32 IU/L (14-36); BUN Creatinine Ratio 9.7 (6-22); Bilirubin Total 0.6 mg/dL (0.2-1.3); Blood Urea Nitrogen 7 mg/dL (7-17); Calcium 10.6 mg/dL (8.4-10.2); Carbon Dioxide 25 mmol/L (22-32); Chloride 102 mmol/L (98-107); Estimated Glomerular Filt Rate > 60.0 mL/min (>60); Globulin 3.5 g/dL (1.7-4.1); Glucose 93 mg/dL (70-100); HEMOLYSIS < 15 (0-50); Sodium 135 mmol/L (137-145); Total Protein 8.3 g/dL (6.3-8.2)
[2021-07-01 19:40] LABS: Urine Chlamydia NOT DETECTED
--- NOTE | 2021-07-01 19:40 | DI.CT.S_ITS ---
PROCEDURE: CT ABDOMEN PELVIS W CON INDICATIONS: Abdominal pain, elevated WBC TECHNIQUE: After the administration of intravenous contrast, axial sections acquired from the lung bases to the pubic symphysis. Coronal and sagittal reformats were performed. For radiation dose reduction, the following was used: automated exposure control, adjustment of mA and/or kV according to patient size. COMPARISON: None. FINDINGS: Image quality: Excellent. Lung bases: Unremarkable. Heart: No significant findings. ABDOMEN: Liver: There is moderate hepatic steatosis. No discrete hepatic lesion.. Gallbladder: Within normal limits. Biliary ducts: Unremarkable. Pancreas: Unremarkable. Spleen: Unremarkable. Adrenal Glands: Unremarkable. Kidneys and Ureters: Unremarkable. Stomach and Bowel: Stomach, small bowel loops, and colon are unremarkable. Appendix is visualized and is within normal limits. Peritoneum: No abnormal intraperitoneal fluid. No free air. Ventral Wall: No hernias. Abdominal Nodes: No retroperitoneal or mesenteric adenopathy by size criteria. Vessels: Aorta and inferior vena cava are normal in size. PELVIS: Pelvic Organs: Intrauterine device is seen. There are suggestion of small bilateral ovarian cysts measures up to 1.3 cm in size in left ovary. Bladder: Unremarkable. Pelvic Nodes: No enlarged lymph nodes. Miscellaneous: No hernias are seen. Bones: Unremarkable. IMPRESSION: 1. No bowel obstruction or abnormal bowel wall thickening. Normal appendix. No free fluid or free air. 2. Intrauterine device is seen. Suggestion of small bilateral ovarian cysts. 3. Hepatic steatosis, no discrete hepatic lesion. Dictated by: Chester Buchanan M.D. on 07/01/2021 at 20:14 Approved by: Chester Buchanan M.D. on 07/01/2021 at 20:17
[2021-07-01 20:03] VITALS: BP 115/74; PULSE 98; RESP 16; TEMP 38; O2SAT 97
[2021-07-01 20:25] VITALS: TEMP 38
[2021-07-01 20:39] VITALS: BP 110/74; PULSE 103; RESP 18; TEMP 37.4; O2SAT 97
[2021-07-01 22:18] LABS: Adenovirus Not Detected (Not Detect); B. parapertussis Not Detected (Not Detecte); Bordetella pertussis Not Detected (Not Detecte); Chlamydophila pneumoniae Not Detected (Not Detect); Coronavirus 229E Not Detected (Not Detect); Coronavirus HKU1 Not Detected (Not Detect); Coronavirus NL 63 Not Detected (Not Detect); Coronavirus OC43 Not Detected (Not Detect); Human Metapneumovirus Not Detected (Not Detect); Human Rhinovirus/Enterovirus Not Detected (Not Detect); Influenza A Not Detected (Not Detect); Influenza B Not Detected (Not Detect); Parainfluenza Virus 1 Not Detected (Not Detect); Parainfluenza Virus 2 Not Detected (Not Detect); Parainfluenza Virus 3 Not Detected (Not Detect); Parainfluenza Virus 4 Not Detected (Not Detect); Respiratory Syncytial Virus Not Detected (Not Detect); SARS- CoV-2 Not Detected (Not Detecte)
[2021-07-01 22:19] LABS: Mycoplasma pneumoniae Not Detected (Not Detect)
== END 2021-07-01 20:41 | disposition home or self-care (01) ==
PROVIDERS: Emergency Medicine; Physician Assistant; Emergency Provider Emergency Medicine
DX: R50.9 Fever, unspecified (principal); J02.9 Acute pharyngitis, unspecified; R10.31 Right lower quadrant pain; R30.0 Dysuria; R11.0 Nausea; Z20.822 Contact with and (suspected) exposure to COVID-19
CPT/HCPCS: 36415; 74177; 80053; 81001; 81003; 81025; 83605; 85025; 87040; 87491; 87591; 87633; 87635; 87880; 99284; C9803; Q9967

== ENCOUNTER 2021-08-29 19:07 | Emergency (ER) | payer OTHER, MEDICAID, SELFPAY ==
[2021-08-29] VITALS (7 sets, daily range): BP systolic 103–114; BP diastolic 54–69; PULSE 74–99; RESP 16–18; TEMP 36.6; O2SAT 96–100
--- NOTE | 2021-08-29 19:22 | DI.RAD.S_ITS ---
PROCEDURE: XR CHEST 1V INDICATIONS: chest pain TECHNIQUE: One view of the chest was acquired. COMPARISON: None. FINDINGS: Surgical changes and devices: None. Lungs and pleura: There is bilateral perihilar bronchial wall thickening. Patchy indistinct airspace opacities are also demonstrated in the lung bases. No pleural effusions or pneumothorax. Mediastinum: Mediastinal contours appear normal. Heart size is normal. Bones and chest wall: No suspicious bony lesions. Overlying soft tissues appear unremarkable. IMPRESSION: 1. Bilateral bronchial wall thickening compatible with bronchiolitis. 2. Patchy indistinct airspace opacities bilaterally suggestive of atypical pneumonia. Dictated by: Scott Rhoades M.D. on 08/29/2021 at 20:31 Approved by: Scott Rhoades M.D. on 08/29/2021 at 20:33
[2021-08-29 19:38] LABS: Add Manual Diff / Slide Review NO; Basophils Absolute Auto 100 /uL (0-100); Basophils Percent Auto 0.6 % (0-2); Eosinophils Absolute Auto 200 /uL (0-450); Eosinophils Percent Auto 2.2 % (2-4); Hematocrit 48.1 % (36-46); Hemoglobin 16.9 g/dL (12.0-16.0); Lymphocytes Absolute Auto 2700 /uL (1100-4500); Lymphocytes Percent Auto 25.9 % (25-40); Mean Corpuscular HGB Conc 35.2 % (30-36); Mean Corpuscular Hemoglobin 33.3 PG (26-34); Mean Corpuscular Volume 94.5 fL (80-100); Monocytes Absolute Auto 600 /uL (0-900); Monocytes Percent Auto 6.1 % (3-14); Neutrophils Absolute Auto 6700 /uL (1500-7000); Neutrophils Percent Auto 65.2 % (50-75); Platelet Count 209 X10^3/uL (150-400); Red Blood Cell Count 5.09 X10^6/uL (4.0-5.2); Red Cell Distribution Width 12.8 % (11.6-14.8); White Blood Cell Count 10.4 X10^3/uL (4.5-11.0)
[2021-08-29 19:47] LABS: Alanine Aminotransferase 16 IU/L (<35); Albumin 4.4 g/dL (3.5-5.0); Albumin Globulin Ratio 1.3 (1.0-2.8); Alkaline Phosphatase 54 U/L (38-126); Aspartate Aminotransferase 27 IU/L (14-36); BUN Creatinine Ratio 12.1 (6-22); Bilirubin Total 0.6 mg/dL (0.2-1.3); Blood Urea Nitrogen 8 mg/dL (7-17); Calcium 10.4 mg/dL (8.4-10.2); Carbon Dioxide 28 mmol/L (22-32); Chloride 107 mmol/L (98-107); Creatine Kinase 43 U/L (30-135); Estimated Glomerular Filt Rate > 60.0 mL/min (>60); Globulin 3.3 g/dL (1.7-4.1); Glucose 97 mg/dL (70-100); HEMOLYSIS < 15 (0-50); Lipase 109 U/L (23-300); Magnesium 2.3 mg/dL (1.6-2.3); Potassium 3.7 mmol/L (3.4-5.1); Sodium 138 mmol/L (137-145); Total Protein 7.7 g/dL (6.3-8.2)
[2021-08-29 19:59] LABS: Troponin I < 0.012 ng/mL (0.01-0.034)
--- NOTE | 2021-08-29 21:09 | ED_ITS ---
HPI - Chest Pain General Chief Complaint: Chest Pain Stated Complaint: chest pain Time Seen by Provider: 08/29/21 20:59 Source: patient Mode of arrival: Ambulatory Limitations: no limitations History of Present Illness HPI narrative: 0 patient is a 31-year-old female who is a current smoker presenting with chest discomfort shortness of breath. She has started last night the center of her chest radiating out, constant in nature she does not feel like she can take a deep breath. She denies any fever chills she is coughing up some phlegm. She denies any hemoptysis. She also takes control, no prior history of blood clots. Related Data Previous Rx's Medication Instructions Recorded albuterol sulfate 90 mcg/actuation 2 puff INHALATION Q4-6H PRN #8.5 08/29/21 aerosol inhaler gram Allergies Allergy/AdvReac Type Severity Reaction Status Date / Time codeine Allergy Verified 07/01/21 17:09 Penicillins Allergy Verified 07/01/21 17:09 Review of Systems Review of Systems Narrative: GENERAL: Denies chills, fatigue, malaise, fever, sweats, travel HEENT: Denies sinus pain, ear pain, sore throat, difficulty swallowing, neck pain RESPIRATORY: Denies dyspnea, cough, wheezing, hemoptysis, sputum. CARDIOVASCULAR: See HPI GASTROINTESTINAL: Denies nausea, vomiting, abdominal pain, diarrhea, constipation, melena. : Denies dysuria, frequency, incontinence, hematuria, urinary retention, flank pain. MUSCULOSKELETAL: Denies weakness, joint pain, or bony pain SKIN: No rash, no erythema, no pruritus NEUROLOGIC: Denies weakness, dizziness, headache, numbness, change in speech, confusion PSYCHIATRIC: No concerning psychosocial issues. 12 point review of systems is negative except for those stated above and HPI Patient History Social History Smoking Status: Current every day smoker Smoking Status: Current every day smoker alcohol intake frequency: a few times a month Substance Use Type: marijuana Exam Initial Vital Signs Initial Vital Signs: Vital Signs Temperature 98 F 08/29/21 19:16 Pulse Rate 99 H 08/29/21 19:16 Respiratory Rate 18 08/29/21 19:16 Blood Pressure 103/69 08/29/21 19:16 Pulse Oximetry 100 08/29/21 19:16 GENERAL: Well-appearing, well-nourished and in no acute distress. HEENT: Head atraumatic,EOMI, pupils reactive, face symmetric, moist mucous membranes CARDIOVASCULAR: Regular rate and rhythm without murmurs, rubs or gallops. RESPIRATORY: Breath sounds equal bilaterally, no wheezes rales or rhonchi. ABDOMEN: Soft, nontender. Normoactive bowel sounds all 4 quadrants. No guarding or rebound. EXTREMITIES: Normal range of motion, no clubbing or edema. Neurovascularly intact NEUROLOGICAL: Alert and oriented x4.Normal gait and speech. SKIN: Warm, dry, no laceration, no petechiae, no rashes or lesions. Scores HEART Score Heart Score history: Slightly Suspicious Heart Score EKG: Normal Heart Score Age: < 45 years old Heart Score risk factors: No known risk factors Heart Score troponin: < or = to normal limit Heart Score Total: 0 PERC Score Age greater than or equal to 50 years: No Heart rate greater than or equal to 100 bpm: No Room Air O2 Sat less than 95%: No Unilateral leg swelling: No Recent trauma or surgery: No Hemoptysis: No Prior PE or DVT: No Hormone Use: Yes Total PERC Score: 1 Course Orders Ordered: ED Orders 08/29/21 19:22 XR chest 1V Stat EKG-12 Lead Stat 08/29/21 19:25 Complete Blood Count AUTO DIFF Stat Comprehensive Metabolic Panel Stat D Dimer Stat Lipase Stat Magnesium Stat Troponin & CK Cardiac Panel Stat 08/29/21 21:13 COVID19 -Nasal swab/Pre-Proc Stat Discontinued Medications Albuterol (Albuterol 2.5 Mg/3 Ml Neb (Adult)) 2.5 mg INH NOW ONE Stop: 08/29/21 21:06 Last Admin: 08/29/21 21:52 Dose: 2.5 mg Documented by: REGI Vital Signs Vital signs: Vital Signs - 8 hr 08/29/21 19:16 08/29/21 20:59 08/29/21 21:00 Temperature 98 F Pulse Rate 99 H 83 89 Respiratory Rate 18 Blood Pressure 103/69 104/54 L Pulse Oximetry 100 97 97 08/29/21 21:20 08/29/21 21:30 08/29/21 21:56 Temperature Pulse Rate 86 91 H 74 Respiratory Rate 16 Blood Pressure 104/54 L 108/63 Pulse Oximetry 96 98 98 08/29/21 22:00 Temperature Pulse Rate 83 Respiratory Rate Blood Pressure 114/67 Pulse Oximetry 99 MDM - Chest Pain Lab Data Result diagrams: 08/29/21 19:25 08/29/21 19:25 Labs: Lab Results 08/29/21 08/29/21 08/29/21 Range/Units 19:25 19:25 19:25 WBC 10.4 (4.5-11.0) X10^3/uL RBC 5.09 (4.0-5.2) X10^6/uL Hgb 16.9 H (12.0-16.0) g/dL Hct 48.1 H (36-46) % MCV 94.5 (80-100) fL MCH 33.3 (26-34) PG MCHC 35.2 (30-36) % RDW 12.8 (11.6-14.8) % Plt Count 209 (150-400) X10^3/uL Neut % (Auto) 65.2 (50-75) % Lymph % (Auto) 25.9 (25-40) % [place] % (Auto) 6.1 (3-14) % Eos % (Auto) 2.2 (2-4) % Baso % (Auto) 0.6 (0-2) % Neut # (Auto) 6700 (5946-7510) /uL Lymph # (Auto) 2700 (0999-9957) /uL [place] # (Auto) 600 (0-900) /uL Eos # (Auto) 200 (0-450) /uL Baso # (Auto) 100 (0-100) /uL D-Dimer < 200 (<230) ng/mL Sodium 138 (137-145) mmol/L Potassium 3.7 (3.4-5.1) mmol/L Chloride 107 (98-107) mmol/L Carbon Dioxide 28 (22-32) mmol/L BUN 8 (7-17) mg/dL Creatinine 0.66 (0.52-1.04) mg/dL Estimated GFR > 60.0 (>60) mL/min BUN/Creatinine Ratio 12.1 (6-22) Glucose 97 (70-100) mg/dL Calcium 10.4 H (8.4-10.2) mg/dL Magnesium 2.3 (1.6-2.3) mg/dL Total Bilirubin 0.6 (0.2-1.3) mg/dL AST 27 (14-36) IU/L ALT 16 (<35) IU/L Alkaline Phosphatase 54 (38-126) U/L Total Creatine Kinase 43 (30-135) U/L CK-MB (CK-2) TNP CK-MB (CK-2) Rel Index TNP Troponin I < 0.012 (0.01-0.034) ng/mL Total Protein 7.7 (6.3-8.2) g/dL Albumin 4.4 (3.5-5.0) g/dL Globulin 3.3 (1.7-4.1) g/dL Albumin/Globulin Ratio 1.3 (1.0-2.8) Lipase 109 (23-300) U/L SARS-CoV-2 (PCR) (Negative) 08/29/21 Range/Units 21:13 WBC (4.5-11.0) X10^3/uL RBC (4.0-5.2) X10^6/uL Hgb (12.0-16.0) g/dL Hct (36-46) % MCV (80-100) fL MCH (26-34) PG MCHC (30-36) % RDW (11.6-14.8) % Plt Count (150-400) X10^3/uL Neut % (Auto) (50-75) % Lymph % (Auto) (25-40) % [place] % (Auto) (3-14) % Eos % (Auto) (2-4) % Baso % (Auto) (0-2) % Neut # (Auto) (8940-4565) /uL Lymph # (Auto) (4901-9221) /uL [place] # (Auto) (0-900) /uL Eos # (Auto) (0-450) /uL Baso # (Auto) (0-100) /uL D-Dimer (<230) ng/mL Sodium (137-145) mmol/L Potassium (3.4-5.1) mmol/L Chloride (98-107) mmol/L Carbon Dioxide (22-32) mmol/L BUN (7-17) mg/dL Creatinine (0.52-1.04) mg/dL Estimated GFR (>60) mL/min BUN/Creatinine Ratio (6-22) Glucose (70-100) mg/dL Calcium (8.4-10.2) mg/dL Magnesium (1.6-2.3) mg/dL Total Bilirubin (0.2-1.3) mg/dL AST (14-36) IU/L ALT (<35) IU/L Alkaline Phosphatase (38-126) U/L Total Creatine Kinase (30-135) U/L CK-MB (CK-2) CK-MB (CK-2) Rel Index Troponin I (0.01-0.034) ng/mL Total Protein (6.3-8.2) g/dL Albumin (3.5-5.0) g/dL Globulin (1.7-4.1) g/dL Albumin/Globulin Ratio (1.0-2.8) Lipase (23-300) U/L SARS-CoV-2 (PCR) Negative (Negative) Imaging Data Chest x-ray: Radiologist's Impression: PROCEDURE:? XR CHEST 1V ? INDICATIONS:? chest pain ? TECHNIQUE:? One view of the chest was acquired.? ? COMPARISON:? None. ? FINDINGS:? ? Surgical changes and devices:? None.? ? Lungs and pleura:? There is bilateral perihilar bronchial wall thickening.? Patchy indistinct airspace opacities are also demonstrated in the lung bases.? No pleural effusions or pneumothorax.? ? Mediastinum:? Mediastinal contours appear normal.? Heart size is normal.? ? Bones and chest wall:? No suspicious bony lesions.? Overlying soft tissues herber ear unremarkable.? ? IMPRESSION:? ? 1. Bilateral bronchial wall thickening compatible with bronchiolitis. ? 2. Patchy indistinct airspace opacities bilaterally suggestive of atypical pneumonia. ? ? Dictated by: Scott Rhoades M.D. on 08/29/2021 at 20:31? ECG Data Interpretation: Normal sinus rhythm rate 83 AR interval 134 QRS 84 QTC 411 MDM Narrative Medical decision making narrative: Patient is having some chest discomfort and shortness breath however she is feeling better after albuterol. She is a smoker his I discussed with her that she needs to stop smoking. She has a low risk heart score and PERC score along with a negative D-dimer. Unlikely to be pulmonary embolism, symptoms not consistent with acute coronary syndrome has a negative troponin and normal EKG and no risk factors. A probable upper respiratory syndrome, she given a pr escription for albuterol since she did have some relief with it. Discharge Plan Departure Patient Disposition: Home Clinical Impression: Acute viral syndrome Instructions: DI for Viral Syndrome Activity Restrictions/Additional Instructions: *You have been diagnosed with viral syndrome *What to do: At this time x-ray shows probable virus. Blood work and other testing are overall reassuring. No issues with your heart. I recommend stop smoking to help your breathing. *Continue to take medications as directed Albuterol inhaler 1-2 puffs every 4 hours needed shortness of breath or chest di scomfort--> SENT TO [facility] IN [place] *Follow up with your primary care provider in 2-3 days or call [phone] *Return to ER if you should have increasing shortness of breath, chest pain, pal pitations or any new, worsening or concerning symptoms Prescriptions: New albuterol sulfate 90 mcg/actuation HFA aerosol inhaler 2 puff INHALATION Q4-6H PRN (Reason: shortness of breath or wheezing) Qty: 8.5 0RF
[2021-08-29 21:24] LABS: D Dimer < 200 ng/mL (<230)
[2021-08-29 21:34] LABS: COVID19 -Nasal RAPID Negative (Negative)
[2021-08-29] MEDS: ALBUTEROL 2.5 MG/3 ML NEB (ADULT) INH (21:52)
== END 2021-08-29 22:24 | disposition home or self-care (01) ==
PROVIDERS: Emergency Provider Emergency Medicine
DX: B34.9 Viral infection, unspecified (principal); F17.200 Nicotine dependence, unspecified, uncomplicated; Z20.822 Contact with and (suspected) exposure to COVID-19
CPT/HCPCS: 71045; 80053; 82550; 83690; 83735; 84484; 85025; 85379; 87635; 93005; 94640; 99283; 99284; C9803; J7613

== ENCOUNTER → 2022-06-18 10:56 | Outpatient (CLI) | payer OTHER, MEDICAID, SELFPAY | PROVIDERS: PCP Nurse Practitioner Family; Visit Provider Student in an Organized Health Care Education/Training Program | DX: R30.0 Dysuria (principal) | CPT/HCPCS: 81002; 87077; 87086; 87147; 87210 ==

== ENCOUNTER 2022-09-25 05:36 | Emergency (ER) | payer OTHER, MEDICAID, SELFPAY ==
[2022-09-25] VITALS (11 sets, daily range): BP systolic 115–141; BP diastolic 60–86; PULSE 61–85; RESP 18; TEMP 36.8; O2SAT 98–100; BMI 30.2
--- NOTE | 2022-09-25 06:20 | ED.GENADULT ---
HPI - General Adult <Jenni Wang MD - Last Filed: 10/01/22 18:11> General Chief complaint: Urogenital-Female Stated complaint: kidney pain Time Seen by Provider: 09/25/22 05:57 Source: patient Mode of arrival: Ambulatory History of Present Illness HPI narrative: 32-year-old woman with mild asthma presents with right flank pain that has been waxing and waning since 12/06 this morning. She got up to void notice the pain shortly thereafter. She complains of a low temperature last night she is had no menses since IUD was replaced in May. No prior history of kidney stones. She notes she is had a low-grade headache for the last week. She has not noticed significant dysuria or frequency. No vaginal discharge periods no nausea vomiting or diarrhea Related Data Home Medications Medication Instructions Recorded Confirmed levonorgestrel 20 mcg/24 hours (8 intrauterine 04/18/22 08/08/22 yrs) 52 mg intrauterine device (Mirena) Previous Rx's Medication Instructions Recorded albuterol sulfate 90 mcg/actuation 2 puff inhalation Q4-6H PRN 08/29/21 aerosol inhaler shortness of breath or wheezing #8.5 grams norelgestromin 150 mcg-e.estradiol 1 patch transdermal QWEEK #3 ea 04/18/22 35 mcg/24 hr weekly transderm patch (Xulane) phenazopyridine 100 mg tablet 100 mg PO TID PRN pain 6 doses #6 06/18/22 (Pyridium) tabs doxycycline hyclate 100 mg capsule 100 mg PO BID #14 caps 09/25/22 (Vibramycin) hydrocodone 5 mg-acetaminophen 325 1 tab PO Q4-6H PRN pain #10 tabs 09/25/22 mg tablet ketorolac 10 mg tablet 10 mg PO Q6H PRN pain #14 tabs 09/25/22 ondansetron 4 mg disintegrating 4 mg PO TID-QID PRN nausea and 09/25/22 tablet vomiting #10 tabs Allergies Allergy/AdvReac Type Severity Reaction Status Date / Time codeine Allergy Verified 08/08/22 13:35 Penicillins Allergy Verified 08/08/22 13:35 Review of Systems <Jenni Wang MD - Last Filed: 10/01/22 18:11> Review of Systems Narrative: Remainder of complete review of systems is otherwise unremarkable except for that included in the HPI. Patient History <Jenni Wang MD - Last Filed: 10/01/22 18:11> Social History Smoking Status: Current every day smoker Smoking Status: Current every day smoker alcohol intake frequency: a few times a month Substance Use Type: marijuana Exam <Jenni Wang MD - Last Filed: 10/01/22 18:11> Initial Vital Signs Initial Vital Signs: Vital Signs Temperature 98.3 F 09/25/22 06:09 Pulse Rate 85 09/25/22 06:09 Respiratory Rate 18 09/25/22 06:09 Blood Pressure 135/86 09/25/22 06:09 Pulse Oximetry 100 09/25/22 06:09 Oxygen Delivery Method 09/25/22 06:09 General: Healthy appearing, in no acute distress. Able to give a complete and coherent history. Well-nourished well-developed HEENT: Moist mucous membranes, normal sclera with reactive pupils, Respiratory: Lungs are clear to auscultation, no wheezing no rales no rhonchi. Full and symmetrical air movement Cardiac: Regular rate and rhythm no murmurs no bruits Abdomen: Soft, nontender, good bowel tones, mild right flank pain Skin: Warm and dry, no rashes Neurologic: Grossly neurologically intact with no obvious asymmetries or abnormalities Extremities: No trauma, well perfused Psych: Cooperative, appropriate insight and affect <Mustapha Torres DO - Last Filed: 09/25/22 11:19> Initial Vital Signs Initial Vital Signs: Vital Signs Temperature 98.3 F 09/25/22 06:09 Pulse Rate 85 09/25/22 06:09 Respiratory Rate 18 09/25/22 06:09 Blood Pressure 135/86 09/25/22 06:09 Pulse Oximetry 100 09/25/22 06:09 Oxygen Delivery Method 09/25/22 06:09 Course <Jenni Wang MD - Last Filed: 10/01/22 18:11> Orders Ordered: Discontinued Medications Sodium Chloride (Normal Saline 0.9%) 1,000 mls @ 1,000 mls/hr IV BOLUS ONE Stop: 09/25/22 07:45 Last Infusion: 09/25/22 09:05 Dose: 0 mls/hr Documented By: Admin: 09/25/22 07:59 Dose: 1,000 mls/hr Documented By: ALEJA Ketorolac Tromethamine (Ketorolac 30 Mg/Ml Vial) 15 mg IV NOW ONE Stop: 09/25/22 06:47 Last Admin: 09/25/22 07:59 Dose: 15 mg Documented By: BS Vital Signs Vital signs: Vital Signs - 8 hr 09/25/22 06:09 09/25/22 09:04 09/25/22 09:05 Temperature 98.3 F Pulse Rate 85 70 69 Respiratory Rate 18 Blood Pressure 135/86 Pulse Oximetry 100 98 98 Oxygen Delivery Method Room Air 09/25/22 09:05 09/25/22 09:15 09/25/22 09:15 Temperature Pulse Rate 72 Respiratory Rate Blood Pressure 122/72 120/71 Pulse Oximetry 98 Oxygen Delivery Method 09/25/22 09:30 09/25/22 09:30 09/25/22 09:46 Temperature Pulse Rate 72 70 Respiratory Rate Blood Pressure 120/79 Pulse Oximetry 98 98 Oxygen Delivery Method 09/25/22 09:46 09/25/22 10:00 09/25/22 10:09 Temperature Pulse Rate 65 61 Respiratory Rate Blood Pressure 134/69 Pulse Oximetry 98 99 Oxygen Delivery Method 09/25/22 10:09 Temperature Pulse Rate Respiratory Rate Blood Pressure 141/60 H Pulse Oximetry Oxygen Delivery Method <Mustapha Torres DO - Last Filed: 09/25/22 11:19> Orders Ordered: Discontinued Medications Sodium Chloride (Normal Saline 0.9%) 1,000 mls @ 1,000 mls/hr IV BOLUS ONE Stop: 09/25/22 07:45 Last Infusion: 09/25/22 09:05 Dose: 0 mls/hr Documented By: Admin: 09/25/22 07:59 Dose: 1,000 mls/hr Documented By: ALEJA Ketorolac Tromethamine (Ketorolac 30 Mg/Ml Vial) 15 mg IV NOW ONE Stop: 09/25/22 06:47 Last Admin: 09/25/22 07:59 Dose: 15 mg Documented By: ALEJA Reevaluation(s) Reevaluation #1: Patient feeling significant improvement after above-stated therapies Consultations Consultation #1: Dr. Calloway consulted regarding abnormal positioning of IUD, he will see patient at the bedside, please see his note for details of the visit Consultation #2: Discussed concerning findings on CT and ultrasound with on-call Radiology Vital Signs Vital signs: Vital Signs - 8 hr 09/25/22 06:09 09/25/22 09:04 09/25/22 09:05 Temperature 98.3 F Pulse Rate 85 70 69 Respiratory Rate 18 Blood Pressure 135/86 Pulse Oximetry 100 98 98 Oxygen Delivery Method Room Air 09/25/22 09:05 09/25/22 09:15 09/25/22 09:15 Temperature Pulse Rate 72 Respiratory Rate Blood Pressure 122/72 120/71 Pulse Oximetry 98 Oxygen Delivery Method 09/25/22 09:30 09/25/22 09:30 09/25/22 09:46 Temperature Pulse Rate 72 70 Respiratory Rate Blood Pressure 120/79 Pulse Oximetry 98 98 Oxygen Delivery Method 09/25/22 09:46 09/25/22 10:00 09/25/22 10:09 Temperature Pulse Rate 65 61 Respiratory Rate Blood Pressure 134/69 Pulse Oximetry 98 99 Oxygen Delivery Method 09/25/22 10:09 Temperature Pulse Rate Respiratory Rate Blood Pressure 141/60 H Pulse Oximetry Oxygen Delivery Method Medical Decision Making <Jenni Wang MD - Last Filed: 10/01/22 18:11> Lab Data 09/25/22 07:49 09/25/22 07:49 Labs: Lab Results 09/25/22 09/25/22 Range/Units 07:49 07:49 WBC 8.6 (4.5-11.0) X10^3/uL RBC 5.10 (4.0-5.2) X10^6/uL Hgb 16.7 H (12.0-16.0) g/dL Hct 48.5 H (36-46) % MCV 95.0 (80-100) fL MCH 32.8 (26-34) PG MCHC 34.5 (30-36) % RDW 13.0 (11.6-14.8) % Plt Count 206 (150-400) X10^3/uL Neut % (Auto) 66.1 (50-75) % Lymph % (Auto) 25.7 (25-40) % [place] % (Auto) 5.5 (3-14) % Eos % (Auto) 2.2 (2-4) % Baso % (Auto) 0.5 (0-2) % Neut # (Auto) 5700 (3885-4531) /uL Lymph # (Auto) 2200 (7453-4793) /uL [place] # (Auto) 500 (0-900) /uL Eos # (Auto) 200 (0-450) /uL Baso # (Auto) 0 (0-100) /uL Sodium 139 (137-145) mmol/L Potassium 4.4 (3.4-5.1) mmol/L Chloride 106 (98-107) mmol/L Carbon Dioxide 26 (22-32) mmol/L BUN 12 (7-17) mg/dL Creatinine 0.58 (0.52-1.04) mg/dL Estimated GFR > 60 (>60) mL/min BUN/Creatinine Ratio 20.7 (6-22) Glucose 90 (70-100) mg/dL Calcium 9.9 (8.4-10.2) mg/dL Total Bilirubin 0.5 (0.2-1.3) mg/dL AST 27 (14-36) IU/L ALT 15 (<35) IU/L Alkaline Phosphatase 62 (38-126) U/L Total Protein 7.8 (6.3-8.2) g/dL Albumin 4.4 (3.5-5.0) g/dL Globulin 3.4 (1.7-4.1) g/dL Albumin/Globulin Ratio 1.3 (1.0-2.8) Point of Care Testing Test Results Negative Urine Dip Bedside Urine Glucose Negative Bedside Urine Bilirubin - Negative Bedside Urine Ketone - Negative Urine Specific [place] 1.030 Bedside Urine Occult Blood - Negative Bedside Urine pH 6.0 Bedside Urine Protein - Negative Bedside Urine Urobilinogen - Negative Bedside Urine Nitrite - Negative Bedside Urine Leukocytes - Negative Esterase Point of care testing: Point of Care Testing Test Results Negative Urine Dip Bedside Urine Glucose Negative Bedside Urine Bilirubin - Negative Bedside Urine Ketone - Negative Urine Specific [place] 1.030 Bedside Urine Occult Blood - Negative Bedside Urine pH 6.0 Bedside Urine Protein - Negative Bedside Urine Urobilinogen - Negative Bedside Urine Nitrite - Negative Bedside Urine Leukocytes - Negative Esterase Imaging Data CT KUB: Radiologist's Impression: No acute findings. Punctate nonobstructing left renal calculi, hepatic steatosis. No hydronephrosis MDM Narrative Medical decision making narrative: CC: Right flank pain waxing and waning for the last 4 hours Complicating co-morbidities: IUD in place, she is not Corroborating data: Data collected from: patient, Differential considered: Pyelonephritis, ovarian cyst, hydronephrosis, ureterolithiasis, bladder infection, constipation, appendicitis, musculoskeletal, zoster Exam documented above, pertinent findings include: Mild right flank pain no skin changes Lab Test results independently reviewed as above. Pertinent findings: Imaging studies independently reviewed: No nephrolithiasis, appendicitis, ovarian cyst an IUD is appropriately placed. Gallbladder pancreas spleen and adrenal glands are all unremarkable Treatments: Re-evaluations: Discussion: Diagnosis: Disposition: see below, along with detailed discharge instructions that have been reviewed with patient as well as indications for ED re-evaluation and additional outpatient follow up <Mustapha Torres, - Last Filed: 09/25/22 11:19> Lab Data Labs: Lab Results 09/25/22 09/25/22 Range/Units 07:49 07:49 WBC 8.6 (4.5-11.0) X10^3/uL RBC 5.10 (4.0-5.2) X10^6/uL Hgb 16.7 H (12.0-16.0) g/dL Hct 48.5 H (36-46) % MCV 95.0 (80-100) fL MCH 32.8 (26-34) PG MCHC 34.5 (30-36) % RDW 13.0 (11.6-14.8) % Plt Count 206 (150-400) X10^3/uL Neut % (Auto) 66.1 (50-75) % Lymph % (Auto) 25.7 (25-40) % [place] % (Auto) 5.5 (3-14) % Eos % (Auto) 2.2 (2-4) % Baso % (Auto) 0.5 (0-2) % Neut # (Auto) 5700 (3280-5665) /uL Lymph # (Auto) 2200 (7737-7715) /uL [place] # (Auto) 500 (0-900) /uL Eos # (Auto) 200 (0-450) /uL Baso # (Auto) 0 (0-100) /uL Sodium 139 (137-145) mmol/L Potassium 4.4 (3.4-5.1) mmol/L Chloride 106 (98-107) mmol/L Carbon Dioxide 26 (22-32) mmol/L BUN 12 (7-17) mg/dL Creatinine 0.58 (0.52-1.04) mg/dL Estimated GFR > 60 (>60) mL/min BUN/Creatinine Ratio 20.7 (6-22) Glucose 90 (70-100) mg/dL Calcium 9.9 (8.4-10.2) mg/dL Total Bilirubin 0.5 (0.2-1.3) mg/dL AST 27 (14-36) IU/L ALT 15 (<35) IU/L Alkaline Phosphatase 62 (38-126) U/L Total Protein 7.8 (6.3-8.2) g/dL Albumin 4.4 (3.5-5.0) g/dL Globulin 3.4 (1.7-4.1) g/dL Albumin/Globulin Ratio 1.3 (1.0-2.8) Point of Care Testing Test Results Negative Urine Dip Bedside Urine Glucose Negative Bedside Urine Bilirubin - Negative Bedside Urine Ketone - Negative Urine Specific [place] 1.030 Bedside Urine Occult Blood - Negative Bedside Urine pH 6.0 Bedside Urine Protein - Negative Bedside Urine Urobilinogen - Negative Bedside Urine Nitrite - Negative Bedside Urine Leukocytes - Negative Esterase Point of care testing: Point of Care Testing Test Results Negative Urine Dip Bedside Urine Glucose Negative Bedside Urine Bilirubin - Negative Bedside Urine Ketone - Negative Urine Specific [place] 1.030 Bedside Urine Occult Blood - Negative Bedside Urine pH 6.0 Bedside Urine Protein - Negative Bedside Urine Urobilinogen - Negative Bedside Urine Nitrite - Negative Bedside Urine Leukocytes - Negative Esterase [facility] Narrative Medical decision making narrative: [0700] (Brian) Patient received in sign out from [Kathleen]. I have reviewed the clinical course and performed an independent history and physical exam. CT Pending 814 - call from radiologist (Dr. Cleaning) with concern that IUD is misplaced and perforating uterus. Recommends US, which has been ordered 08 - patient states that in summer of 2021 she was scheduled for routine replacement of IUD and her PCP had a difficult time removing it, she was then referred to our real estate salesperson department who obtained US noting abnormal placement. IUD was then removed and subsequently replaced in office two months later with Mirena IUD 904 - reached out to provider consumer lending manager for real estate salesperson (Shelby), still awaiting US read by radiology. CC: Right flank pain waxing and waning for the last 4 hours Complicating co-morbidities: IUD in place, she is not Corroborating data: Data collected from: patient, Differential considered: Pyelonephritis, ovarian cyst, hydronephrosis, ureterolithiasis, bladder infection, constipation, appendicitis, musculoskeletal, zoster Exam documented above, pertinent findings include: Mild right flank pain no skin changes Lab Test results independently reviewed as above. Pertinent findings: No significant abnormal findings Imaging studies independently reviewed: No nephrolithiasis, appendicitis, ovarian cyst an IUD is appropriately placed. Gallbladder pancreas spleen and adrenal glands are all unremarkable. Over read on CT scan, called by on-call Radiology noting suspected in proper position of IUD with possible uterine perforation. Ultrasound suggests uterine wall has been perforated by IUD Consults: Discussed with Radiology myself, discussed with on-call gynecology, please see Dr. Calloway's note for details. He evaluated patient at the bedside, remove the IUD and arrange for follow-up Treatments: Fluids, Toradol Re-evaluations: Significant improvement. Patient continues to feel well after IUD is removed by Dr. Calloway Discussion: Patient with lower abdominal and pelvic pain is otherwise healthy and has very reassuring labs. Initially CT was largely normal without evidence of kidney stone, free fluid, perforation or obstruction, over call by Radiology notes possible IUD malalignment which is confirmed by ultrasound. Gynecology was consulted and evaluated patient at bedside, removed IUD and arrange for follow-up, recommended doxycycline for 1 week. Disposition: see below, along with detailed discharge instructions that have been reviewed with patient as well as indications for ED re-evaluation and additional outpatient follow up Discharge Plan Departure Patient Disposition: Home Clinical Impression: Pelvic pain, IUD complication Instructions: DI for Intrauterine Device Removal Activity Restrictions/Additional Instructions: *You have been diagnosed with [pelvic pain with complication of IUD. *What to do: *Please continue to take your regular medications as directed. [x ] New medication prescriptions sent to your pharmacy: [ [facility]] [ ] New medication written as a paper prescription [ ] No new medications given *Please follow up with Dr. Calloway's office in the next few days, he stated that you should expect a call from them to help schedule this. If you do not hear from them in the next few days please contact their office at the number listed below and let them know you were seen in the emergency department and we would like you seen in follow-up *Return to Emergency Department if you should have any new, worsening or concerning symptoms, such as [fever greater than 101 F, shaking chills, worsening pain, persistent vomiting or other bothersome symptoms] Prescriptions: New doxycycline hyclate [Vibramycin] 100 mg capsule 100 mg PO BID Qty: 14 0RF hydrocodone-acetaminophen 5-325 mg tablet 1 tab PO Q4-6H PRN (Reason: pain) Qty: 10 0RF ketorolac 10 mg tablet 10 mg PO Q6H PRN (Reason: pain) Qty: 14 0RF ondansetron 4 mg tablet,disintegrating 4 mg PO TID-QID PRN (Reason: nausea and vomiting) Qty: 10 0RF No Action phenazopyridine [Pyridium] 100 mg tablet 100 mg PO TID PRN (Reason: pain) Qty: 6 0RF Mirena 20 mcg/24 hours (7 yrs) 52 mg intrauterine device intrauterine Xulane 150-35 mcg/24 hr patch weekly 1 patch transdermal QWEEK Qty: 3 2RF Rx Instructions: apply once weekly for 3 weeks of a 4-week cycle albuterol sulfate 90 mcg/actuation HFA aerosol inhaler 2 puff INHALATION Q4-6H PRN (Reason: shortness of breath or wheezing) Qty: 8.5 0RF Referrals: Adina Chanel ARNP [Primary Care Provider] - Moy Calloway MD [Physician] - Stand Alone Forms: Patient Portal/API, Work Release Note
--- NOTE | 2022-09-25 06:47 | DI.CT.S_ITS ---
PROCEDURE: CT KIDNEY URETER BLADDER (KUB) INDICATIONS: right flank pain TECHNIQUE: Axial sections were acquired from the lung bases to the pubic symphysis. Coronal and sagittal reformats were performed. For radiation dose reduction, the following was used: automated exposure control, adjustment of mA and/or kV according to patient size. COMPARISON: [facility], CT, CT ABDOMEN PELVIS W CON, 07/01/2021, 19:55. [facility], US, US PELVIC COMPLETE, 04/18/2022, 10:03. FINDINGS: Image quality: Excellent. Lung bases: Unremarkable. Heart: No significant findings. URINARY: Right Kidney: No stones or hydronephrosis. Right Ureter: No hydroureter. Left Kidney: No hydronephrosis. Punctate nonobstructing kidney stones x2. Left Ureter: No hydroureter. Bladder: Normal wall thickness. No stones. ABDOMEN: Liver: Unremarkable. Gallbladder: Unremarkable. Biliary ducts: Unremarkable. Pancreas: Unremarkable. Spleen: Unremarkable. Adrenal Glands: Unremarkable. Stomach and Bowel: Stomach, small bowel loops, and colon are unremarkable. The appendix is not dilated. Peritoneum: No abnormal intraperitoneal fluid. No free air. Ventral Wall: No significant hernia. Abdominal Nodes: No enlarged retroperitoneal or mesenteric lymph nodes. Vessels: Aorta and inferior vena cava are normal in size. PELVIS: Pelvic Organs: Anteverted uterus. IUD in the uterus. However, the inferior arm appears to project into the myometrium towards the urinary bladder. Pelvic Nodes: Unremarkable. Miscellaneous: No inguinal hernias are seen. Bones: No suspicious lesion. Small vertebral body osteophytes. IMPRESSION: 1. No acute inflammatory process. No free fluid. 2. No hydronephrosis. No obstructing kidney stones. 3. Punctate nonobstructing left kidney stones. No definite right kidney stones. 4. IUD may be malpositioned. Recommend further evaluation with pelvic ultrasound. Minor discrepancy with the overnight preliminary interpretation. IUD may be bowel position. Nonobstructing kidney stones are within the left kidney not right. Comment: Findings were discussed with Mustapha Torres at time of dictation. Dictated by: Rodney Cleaning M.D. on 09/25/2022 at 8:03 Approved by: Rodney Cleaning M.D. on 09/25/2022 at 8:16
[2022-09-25] MEDS: SODIUM CHLORIDE 0.9% 1,000 ML 1000 ML IV (07:59)
[2022-09-25] MEDS: KETOROLAC 30 MG/ML VIAL 15 MG IV (07:59)
[2022-09-25 08:00] LABS: Add Manual Diff / Slide Review NO; Basophils Absolute Auto 0 /uL (0-100); Basophils Percent Auto 0.5 % (0-2); Eosinophils Absolute Auto 200 /uL (0-450); Eosinophils Percent Auto 2.2 % (2-4); Hematocrit 48.5 % (36-46); Hemoglobin 16.7 g/dL (12.0-16.0); Lymphocytes Absolute Auto 2200 /uL (1100-4500); Lymphocytes Percent Auto 25.7 % (25-40); Mean Corpuscular HGB Conc 34.5 % (30-36); Mean Corpuscular Hemoglobin 32.8 PG (26-34); Monocytes Absolute Auto 500 /uL (0-900); Monocytes Percent Auto 5.5 % (3-14); Neutrophils Absolute Auto 5700 /uL (1500-7000); Neutrophils Percent Auto 66.1 % (50-75); Platelet Count 206 X10^3/uL (150-400); White Blood Cell Count 8.6 X10^3/uL (4.5-11.0)
[2022-09-25 08:15] LABS: Alanine Aminotransferase 15 IU/L (<35); Alkaline Phosphatase 62 U/L (38-126); Aspartate Aminotransferase 27 IU/L (14-36); BUN Creatinine Ratio 20.7 (6-22); Bilirubin Total 0.5 mg/dL (0.2-1.3); Blood Urea Nitrogen 12 mg/dL (7-17); Calcium 9.9 mg/dL (8.4-10.2); Carbon Dioxide 26 mmol/L (22-32); Chloride 106 mmol/L (98-107); Estimated Glomerular Filt Rate > 60 mL/min (>60); Glucose 90 mg/dL (70-100); Potassium 4.4 mmol/L (3.4-5.1); Sodium 139 mmol/L (137-145); Total Protein 7.8 g/dL (6.3-8.2)
--- NOTE | 2022-09-25 08:16 | DI.US.S_ITS ---
PROCEDURE: US PELVIC COMPLETE INDICATIONS: MALPOSITIONED IUD ON CT TECHNIQUE: Real-time scanning was performed of the pelvic organs, with image documentation. Additional endovaginal scanning was necessary due to incomplete visualization of the adnexal and endometrial structures by transabdominal scanning. COMPARISON: [facility], US, US PELVIC COMPLETE, 04/18/2022, 10:03. [facility], CT, CT KIDNEY URETER BLADDER (KUB), 09/25/2022, 7:01. FINDINGS: Uterus: Uterus is anteverted and normal in size at 8.8 x 4.2 x 6.0 cm. The myometrium is homogeneous. The endometrium measures 4 mm combined thickness. IUD is present in the lower uterine segment. It is noted that the inferior anterior aspect the IUD extends through the scar in the tip is abutting the bladder. Ovaries: The right ovary measures 2.0 x 3.3 x 2.2 cm, with a calculated ovarian volume of 7.5 cc. The left ovary measures 2.3 x 1.8 x 1.8 cm, with a calculated ovarian volume of 4.1 cc. There is a 1.8 cm focus of decreased echogenicity within the right ovary. Other: No pathologic free abdominal or pelvic fluid. IMPRESSION: IUD within the lower uterine segment, extending through these scar and abutting the bladder. Prominent follicle/small simple cyst in the right ovary. We strive to produce accurate, complete, and clear reports of imaging services. To assist us in improving patient care, this report was composed using standard report templates and voice recognition software. Therefore, it may contain abnormal punctuation, insertions and/or omissions. Occasional wrong-word or sound-alike substitutions may occur. Though we review the report and make efforts to correct it, we do recommend that the report be read carefully in proper context to recognize any text inaccuracies. Dictated by: Beth Jonas M.D. on 09/25/2022 at 9:35 Approved by: Beth Jonas M.D. on 09/25/2022 at 9:38
--- NOTE | 2022-09-25 10:38 | PM.CN ---
History of Present Illness Consult details Date Patient Seen: 09/25/22 Time Patient Seen: 10:38 Chief complaint: kidney pain Reason for consult: Embedded IUD on US Requesting provider: Mustapha Torres Narrative: Nazanin is a 32 yo , LMP uncertain due to Mirena IUD in situ since May 2022. This was her 2nd IUD after an earlier one became embedded. She presents to the ED with RLQ/R flank pain and as part of her workup, a pelvic US was obtained which shows: FINDINGS:? ?? Uterus:? Uterus is anteverted and normal in size at 8.8 x 4.2 x 6.0 cm. The myometrium is homogeneous. ? The endometrium measures 4 mm combined thickness.? IUD is present in the lower uterine segment.? It is noted that the inferior anterior aspect the IUD extends through the scar in the tip is abutting the bladder. ? Ovaries:? The right ovary measures 2.0 x 3.3 x 2.2 cm, with a calculated ovarian volume of 7.5 cc. The left ovary measures 2.3 x 1.8 x 1.8 cm, with a calculated ovarian volume of 4.1 cc.? There is a 1.8 cm focus of decreased echogenicity within the right ovary. ? Other:? No pathologic free abdominal or pelvic fluid.? ? IMPRESSION:? ? IUD within the lower uterine segment, extending through these scar and abutting the bladder. ? Prominent follicle/small simple cyst in the right ovary. Meds Home Medications and Allergies Home Medications Medication Instructions Recorded Confirmed Type albuterol sulfate 90 mcg/actuation 2 puff inhalation Q4-6H PRN 08/29/21 08/08/22 Rx aerosol inhaler shortness of breath or wheezing #8.5 grams levonorgestrel 20 mcg/24 hours (8 intrauterine 04/18/22 08/08/22 History yrs) 52 mg intrauterine device (Mirena) norelgestromin 150 mcg-e.estradiol 1 patch transdermal QWEEK #3 ea 04/18/22 08/08/22 Rx 35 mcg/24 hr weekly transderm patch (Xulane) phenazopyridine 100 mg tablet 100 mg PO TID PRN pain 6 doses #6 06/18/22 08/08/22 Rx (Pyridium) tabs doxycycline hyclate 100 mg capsule 100 mg PO BID #14 caps 09/25/22 Rx (Vibramycin) hydrocodone 5 mg-acetaminophen 325 1 tab PO Q4-6H PRN pain #10 tabs 09/25/22 Rx mg tablet ketorolac 10 mg tablet 10 mg PO Q6H PRN pain #14 tabs 09/25/22 Rx ondansetron 4 mg disintegrating 4 mg PO TID-QID PRN nausea and 09/25/22 Rx tablet vomiting #10 tabs Allergies Allergy/AdvReac Type Severity Reaction Status Date / Time codeine Allergy Verified 08/08/22 13:35 Penicillins Allergy Verified 08/08/22 13:35 Review of Systems Review of Systems Narrative: Problem-specific ROS positives included in HPI Exam Vital Signs (past 8 hours): - 09/25/22 06:09 09/25/22 09:04 09/25/22 09:05 Temperature 98.3 F Pulse Rate 85 70 69 Respiratory Rate 18 Blood Pressure 135/86 Pulse Oximetry 100 98 98 Oxygen Delivery Method Room Air 09/25/22 09:05 09/25/22 09:15 09/25/22 09:15 Temperature Pulse Rate 72 Respiratory Rate Blood Pressure 122/72 120/71 Pulse Oximetry 98 Oxygen Delivery Method 09/25/22 09:30 09/25/22 09:30 09/25/22 09:46 Temperature Pulse Rate 72 70 Respiratory Rate Blood Pressure 120/79 Pulse Oximetry 98 98 Oxygen Delivery Method 09/25/22 09:46 09/25/22 10:00 09/25/22 10:09 Temperature Pulse Rate 65 61 Respiratory Rate Blood Pressure 134/69 Pulse Oximetry 98 99 Oxygen Delivery Method 09/25/22 10:09 Temperature Pulse Rate Respiratory Rate Blood Pressure 141/60 H Pulse Oximetry Oxygen Delivery Method Oxygen Delivery Method Room Air [facility] Head: normal to inspection, normocephalic and atraumatic Eyes General: appearance normal, both eyes and all related structures Resp Effort & Inspection: normal respiratory effort and able to speak in complete sentences GI Inspection: normal to inspection Palpation: soft and no hepatosplenomegaly External Female Exam: normal external appearance Speculum Exam - Vagina: normal appearance of the vagina and normal vaginal discharge Speculum Exam - Cervix: normal appearance of the cervix, cervical os open and other (IUD strings visible) Bimanual Exam- Vagina & Uterus: uterine size normal OB/External & Speculum: cervical os open Objective Labs Result Diagrams: 09/25/22 07:49 09/25/22 07:49 Labs: Laboratory Results - last 24 hr 09/25/22 09/25/22 07:49 07:49 WBC 8.6 RBC 5.10 Hgb 16.7 H Hct 48.5 H MCV 95.0 MCH 32.8 MCHC 34.5 RDW 13.0 Plt Count 206 Neut % (Auto) 66.1 Lymph % (Auto) 25.7 [place] % (Auto) 5.5 Eos % (Auto) 2.2 Baso % (Auto) 0.5 Neut # (Auto) 5700 Lymph # (Auto) 2200 [place] # (Auto) 500 Eos # (Auto) 200 Baso # (Auto) 0 Sodium 139 Potassium 4.4 Chloride 106 Carbon Dioxide 26 BUN 12 Creatinine 0.58 Estimated GFR > 60 BUN/Creatinine Ratio 20.7 Glucose 90 Calcium 9.9 Total Bilirubin 0.5 AST 27 ALT 15 Alkaline Phosphatase 62 Total Protein 7.8 PFSH Tobacco & Substance Use Smoking Status: Current every day smoker Assessment & Plan Assessment and plan (1) Malpositioned IUD: Status: Acute Plan It does not seem likely that the patient's malpositioned/embedded IUD is responsible for her right-sided/right lower quadrant/right flank pain. After discussing all options with the patient and the potential risks associated with an embedded IUD in her previous scar, the decision was made to remove the IUD in the emergency department. After verbal consent, a speculum was placed in the vagina, and the strings visualized protruding through the cervical os. An alligator forcep was then used to grasp the strings and with gentle but firm traction, an intact Mirena IUD was removed with minimal to moderate patient discomfort. She will be initiated on Vibramycin 100 mg p.o. b.i.d. x7 days and follow-up will be arranged in our office. We discussed the possibility of inserting a Nexplanon so as to continue the on menorrhea which the patient has enjoyed with the Mirena IUD. A member of my staff contact the patient to make arrangements for her next visit. Time Spent With Patient Time with patient: 30 to 49 minutes with 50% spent counseling/coordinating care Critical Care time: I spent a total of [] minutes of critical care time on this patient's care today; this time is exclusive of procedural time.
[2022-09-28 15:59] LABS: Albumin 4.4 g/dL (3.5-5.0); Albumin Globulin Ratio 1.3 (1.0-2.8); Globulin 3.4 g/dL (1.7-4.1); HEMOLYSIS 28 (0-50)
== END 2022-09-25 11:45 | disposition home or self-care (01) ==
PROVIDERS: Emergency Medicine; Emergency Provider Emergency Medicine; PCP Nurse Practitioner Family
DX: R10.2 Pelvic and perineal pain (principal); T83.32XA Displacement of intrauterine contraceptive device, initial encounter
CPT/HCPCS: 36415; 74176; 76830; 76856; 80053; 81003; 81025; 85025; 96361; 96374; 99283; 99284; J1885

== ENCOUNTER 2023-12-07 12:28 | Emergency (ER) | payer OTHER, MEDICAID, SELFPAY ==
[2023-12-07 12:31] VITALS: BP 142/66; PULSE 86; RESP 16; TEMP 37.1; O2SAT 98; BMI 33.2
[2023-12-07 13:12] LABS: Add Manual Diff / Slide Review NO; Basophils Absolute Auto 0 /uL (0-100); Basophils Percent Auto 0.4 % (0-2); Eosinophils Absolute Auto 100 /uL (0-450); Eosinophils Percent Auto 1.8 % (2-4); Hematocrit 47.2 % (36-46); Hemoglobin 16.4 g/dL (12.0-16.0); Lymphocytes Absolute Auto 2200 /uL (1100-4500); Lymphocytes Percent Auto 27.6 % (25-40); Mean Corpuscular HGB Conc 34.7 % (30-36); Mean Corpuscular Hemoglobin 33.2 PG (26-34); Mean Corpuscular Volume 95.9 fL (80-100); Monocytes Absolute Auto 500 /uL (0-900); Monocytes Percent Auto 6.8 % (3-14); Neutrophils Absolute Auto 5000 /uL (1500-7000); Neutrophils Percent Auto 63.4 % (50-75); Platelet Count 205 X10^3/uL (150-400); Red Blood Cell Count 4.93 X10^6/uL (4.0-5.2); Red Cell Distribution Width 13.1 % (11.6-14.8)
[2023-12-07 13:19] LABS: Prothrombin Time 11.1 SECONDS (9.4-12.5)
[2023-12-07 13:21] LABS: PTT Partial Thromboplastin Tim 34 SECONDS (25.1-36.5)
[2023-12-07 13:23] LABS: Alanine Aminotransferase 17 IU/L (<35); Albumin 4.2 g/dL (3.5-5.0); Albumin Globulin Ratio 1.4 (1.0-2.8); Alkaline Phosphatase 62 U/L (38-126); Aspartate Aminotransferase 31 IU/L (14-36); BUN Creatinine Ratio 18.8 (6-22); Bilirubin Total 0.8 mg/dL (0.2-1.3); Blood Urea Nitrogen 12 mg/dL (7-17); Calcium 9.8 mg/dL (8.4-10.2); Carbon Dioxide 26 mmol/L (22-32); Chloride 110 mmol/L (98-107); Estimated Glomerular Filt Rate > 60 mL/min (>60); Globulin 3.1 g/dL (1.7-4.1); Glucose 108 mg/dL (70-100); HEMOLYSIS < 15 (0-50); Potassium 3.9 mmol/L (3.4-5.1); Sodium 139 mmol/L (137-145); Total Protein 7.3 g/dL (6.3-8.2)
--- NOTE | 2023-12-07 13:32 | ED_ITS ---
HPI - GI Bleed <Minna Washington PA-C - Last Filed: 12/07/23 16:27> General Chief complaint: GI Bleed Stated complaint: blood in stool/ABD pain/lethargy Time Seen by Provider: 12/07/23 13:32 Source: patient Mode of arrival: Ambulatory History of Present Illness HPI Narrative: Patient is a 33-year-old female presenting for evaluation of dull bilateral lower abdominal discomfort x2 days and bloody stool this morning. She reports feeling nauseated and increased fatigue over the last 4 days. She reports that she has had a little bit of diarrhea, but states that it has been occasional. She reports that bowel movements seem to worsen the feeling of her lower abdominal discomfort. She states that occasionally this dull pressure feeling in her lower abdomen goes away and then returns throughout the day. She reports a low grade fever around 100 F earlier this week, but states she has not felt fever since. She reports her last bowel movement was this morning and formed. She states that she noticed dark blood seemed to be mixed in with the stool this morning. Denies any recent ingestion of beats. She denies noticing any clots or having any sensation of itching or feeling any hemorrhoids. She denies any abdominal surgeries other than C sections for the of her children. She denies coughing, sore throat or nasal congestion. She states that her appetite has been decreased but she has been able to eat normal foods. She denies any pain with urination or back pain or flank pain. 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 She states that it acts up when she is sick and recently she has been having increased numbness in her fingers. She was seen in the ER in September 2022 and diagnosed with displacement of IUD. She states she does not have an IUD at this time. Related Data Previous Rx's Medication Instructions Recorded ondansetron HCl 4 mg tablet 4 mg PO Q8H PRN nausea and 12/07/23 vomiting #7 tabs Allergies Allergy/AdvReac Type Severity Reaction Status Date / Time codeine Allergy Verified 10/03/22 10:04 Penicillins Allergy Verified 10/03/22 10:04 Review of Systems <Minna Washington PA-C - Last Filed: 12/07/23 16:27> Review of Systems Narrative: See HPI Patient History <Minna Washington PA-C - Last Filed: 12/07/23 16:27> Social History Smoking Status: Current every day smoker Smoking Status: Current every day smoker tobacco type: cigarettes alcohol intake frequency: a few times a month Substance Use Type: marijuana Exam <Minna Washington PA-C - Last Filed: 12/07/23 16:27> Initial Vital Signs Initial Vital Signs: Vital Signs Temperature 98.8 F 12/07/23 12:31 Pulse Rate 86 12/07/23 12:31 Respiratory Rate 16 12/07/23 12:31 Blood Pressure 142/66 H 12/07/23 12:31 Pulse Oximetry 98 12/07/23 12:31 Oxygen Delivery Method Room Air 12/07/23 12:31 GENERAL: 33 year old patient appears stated age. Well-developed patient, in no acute distress. HEAD: Atraumatic. Normocephalic. EYES: Pupils equal round and reactive. No scleral icterus. No injection or drainage. NECK: Trachea midline. Non tender. CARDIOVASCULAR: Regular rate and rhythm without murmurs, gallops, or rubs. RESPIRATORY: Clear to auscultation. Breath sounds equal bilaterally. No wheezes, rales, or rhonchi. GASTROINTESTINAL: Bowel sounds x4, dull to percussion throughout, abdomen soft and nondistended, negative Rose's sign, increased tenderness to palpation in right and left bilateral lower quadrants, RN Marielle Stone present as operations agent, digital rectal exam performed and hemoccult, no evidence hemorrhoids on exam around anus, no hemorrhoids palpated, EXTREMITIES: No edema or joint tenderness. Posterior tibialis 2+ bilaterally BACK: Nontender without deformity or crepitance. No flank tenderness, no bilateral CVA tenderness NEURO: AOx3. SKIN: No rash or erythema of visible areas <Scooby Doyle MD - Last Filed: 12/07/23 19:04> Initial Vital Signs Initial Vital Signs: Vital Signs Temperature 98.8 F 12/07/23 12:31 Pulse Rate 86 12/07/23 12:31 Respiratory Rate 16 12/07/23 12:31 Blood Pressure 142/66 H 12/07/23 12:31 Pulse Oximetry 98 12/07/23 12:31 Oxygen Delivery Method Room Air 12/07/23 12:31 Course <Minna Washington PA-C - Last Filed: 12/07/23 16:27> Orders Ordered: ED Orders 12/07/23 12:40 Urine Microscopic Stat 12/07/23 13:00 Complete Blood Count AUTO DIFF Stat Comprehensive Metabolic Panel Stat Lipase Stat PTT Partial Thromboplastin Brock Stat Prothrombin Time INR Stat 12/07/23 14:14 CT abdomen pelvis w con Stat 12/07/23 14:38 GI Panel (Film Array) Stat Discontinued Medications Ondansetron HCl (Ondansetron 4 Mg/2 Ml Inj) 4 mg IV NOW PRN PRN Reason: Nausea And Vomiting Last Admin: 12/07/23 16:29 Dose: 4 mg Documented By: JOHN Ondansetron HCl (Ondansetron 4 Mg Odt) 4 mg SL NOW PRN PRN Reason: Nausea And Vomiting Pantoprazole Sodium (Pantoprazole 40 Mg Vial) 80 mg IV NOW ONE Stop: 12/07/23 12:37 Last Admin: 12/07/23 14:35 Dose: Not Given Documented By: ALEJA Vital Signs Vital signs: Vital Signs - 8 hr 12/07/23 12:31 12/07/23 15:04 Temperature 98.8 F 98.5 F Pulse Rate 86 70 Respiratory Rate 16 16 Blood Pressure 142/66 H 127/77 Pulse Oximetry 98 99 Oxygen Delivery Method Room Air Room Air <Scooby Doyle MD - Last Filed: 12/07/23 19:04> Orders Ordered: ED Orders 12/07/23 12:40 Urine Microscopic Stat 12/07/23 13:00 Complete Blood Count AUTO DIFF Stat Comprehensive Metabolic Panel Stat Lipase Stat PTT Partial Thromboplastin Brock Stat Prothrombin Time INR Stat 12/07/23 14:14 CT abdomen pelvis w con Stat 12/07/23 14:38 GI Panel (Film Array) Stat Discontinued Medications Ondansetron HCl (Ondansetron 4 Mg/2 Ml Inj) 4 mg IV NOW PRN PRN Reason: Nausea And Vomiting Last Admin: 12/07/23 16:29 Dose: 4 mg Documented By: JOHN Ondansetron HCl (Ondansetron 4 Mg Odt) 4 mg SL NOW PRN PRN Reason: Nausea And Vomiting Pantoprazole Sodium (Pantoprazole 40 Mg Vial) 80 mg IV NOW ONE Stop: 12/07/23 12:37 Last Admin: 12/07/23 14:35 Dose: Not Given Documented By: BS Vital Signs Vital signs: Vital Signs - 8 hr 12/07/23 12:31 12/07/23 15:04 Temperature 98.8 F 98.5 F Pulse Rate 86 70 Respiratory Rate 16 16 Blood Pressure 142/66 H 127/77 Pulse Oximetry 98 99 Oxygen Delivery Method Room Air Room Air MDM - GI Bleed <Minna Washington PA-C - Last Filed: 12/07/23 16:27> Lab Data 12/07/23 13:00 12/07/23 13:00 Labs: Lab Results 12/07/23 12/07/23 12/07/23 Range/Units 12:40 13:00 14:38 WBC 8.0 (4.5-11.0) X10^3/uL RBC 4.93 (4.0-5.2) X10^6/uL Hgb 16.4 H (12.0-16.0) g/dL Hct 47.2 H (36-46) % MCV 95.9 (80-100) fL MCH 33.2 (26-34) PG MCHC 34.7 (30-36) % RDW 13.1 (11.6-14.8) % Plt Count 205 (150-400) X10^3/uL Neut % (Auto) 63.4 (50-75) % Lymph % (Auto) 27.6 (25-40) % Chambers % (Auto) 6.8 (3-14) % Eos % (Auto) 1.8 L (2-4) % Baso % (Auto) 0.4 (0-2) % Neut # (Auto) 5000 (6671-1528) /uL Lymph # (Auto) 2200 (8162-2895) /uL Chambers # (Auto) 500 (0-900) /uL Eos # (Auto) 100 (0-450) /uL Baso # (Auto) 0 (0-100) /uL PT 11.1 (9.4-12.5) SECONDS INR 1.0 (0.9-1.3) APTT 34 (25.1-36.5) SECONDS Sodium 139 (137-145) mmol/L Potassium 3.9 (3.4-5.1) mmol/L Chloride 110 H (98-107) mmol/L Carbon Dioxide 26 (22-32) mmol/L BUN 12 (7-17) mg/dL Creatinine 0.64 (0.52-1.04) mg/dL Estimated GFR > 60 (>60) mL/min BUN/Creatinine Ratio 18.8 (6-22) Glucose 108 H (70-100) mg/dL Calcium 9.8 (8.4-10.2) mg/dL Total Bilirubin 0.8 (0.2-1.3) mg/dL AST 31 (14-36) IU/L ALT 17 (<35) IU/L Alkaline Phosphatase 62 (38-126) U/L Total Protein 7.3 (6.3-8.2) g/dL Albumin 4.2 (3.5-5.0) g/dL Globulin 3.1 (1.7-4.1) g/dL Albumin/Globulin Ratio 1.4 (1.0-2.8) Lipase 72 (23-300) U/L Urine RBC 0-1/hpf (0-5/HPF) Urine WBC 0-1/hpf (0-5/HPF) Ur Squamous Epith Cells 1-5 /hpf (0-5/HPF) Amorphous Sediment 2+ Urine Bacteria Few (2-10) H (None) Ur Culture Indicated? Cult not indicated Vol Urine Centrifuged 10ml (spun) Stl C. cayetanensis PCR Not detected (Not Detect) Stool Rotavirus (PCR) Not detected (Not Detect) Stool Adenovirus (PCR) Not detected (Not Detect) Stool Astrovirus (PCR) Not detected (Not Detect) Stool Cryptosporidium PCR Not detected (Not Detect) Stl E.coli Shiga Tox PCR Not detected (Not Detect) St Sh/Enteroin Ecoli PCR Not detected (Not Detect) Stl Enterotoxigenic E PCR Not detected (Not Detect) Stool EPEC (PCR) Not detected (Not Detect) Stl E. histolytica PCR Not detected (Not Detect) Stool Giardia Lamblia PCR Not detected (Not Detect) Stool Sapovirus (PCR) Not detected (Not Detect) Stl P. shigelloides PCR Not detected (Not Detect) St Y.enterocolitica PCR Not detected (Not Detect) Stool Vibrio (PCR) Not detected (Not Detect) Stl Vibrio cholerae PCR Not detected (Not Detect) Stl Enteroaggr Ecoli PCR Not detected (Not Detect) Stl Norovirus GI/GII PCR Not detected (Not Detect) Campylobacter (PCR) Not detected (Not Detect) C. difficile Tox (PCR) Not detected (Not Detect) Salmonella (PCR) Not detected (Not Detect) Blood Type Cancelled Rho(D) Type Cancelled Antibody Screen Cancelled Point of Care Testing Test Results Negative Stool Occult Blood Negative Urine Dip Bedside Urine Glucose Negative Bedside Urine Bilirubin - Negative Bedside Urine Ketone - Negative Urine Specific [place] 1.015 Bedside Urine Occult Blood - Negative Bedside Urine pH 7.0 Bedside Urine Protein +/- 15 Bedside Urine Urobilinogen - Negative Bedside Urine Nitrite - Negative Bedside Urine Leukocytes - Negative Esterase Imaging Data CT scan - abdomen/pelvis: Radiologist's Impression: PROCEDURE: CT ABDOMEN PELVIS W CON INDICATIONS: Lower abdominal discomfort x 2 days TECHNIQUE: After the administration of intravenous contrast, axial sections acquired from the lung bases to the pubic symphysis. Coronal and sagittal reformats were performed. For radiation dose reduction, the following was used: automated exposure control, adjustment of mA and/or kV according to patient size. COMPARISON: [facility], CT, CT ABDOMEN PELVIS W CON, 07/01/2021, 19:55. FINDINGS: Image quality: Diagnostic. Lower Chest: No significant findings. ABDOMEN: Liver: No solid mass. [id number] hepatic steatosis is seen. Gallbladder: No radiopaque gallstones or wall thickening. Biliary ducts: No biliary dilation. Pancreas: No ductal dilation. Spleen: Size is within normal limits. Adrenal Glands: No adrenal nodules. Kidneys and Ureters: No hydronephrosis. No solid mass. 1.4 cm simple appearing right renal cortical cyst is again seen unchanged from prior study. No complex renal cystic lesion which requires follow up. Stomach and Bowel: There is no bowel obstruction. No abnormal bowel wall thickening or mesenteric fat stranding. Appendix is visualized and is within normal limits. Questionable mild diffuse colonic wall thickening is seen without significant pericolonic fat stranding. Mild sigmoid diverticulosis is seen without pericolonic fat stranding . No abscess collection. Peritoneum: No abnormal intraperitoneal fluid. No free air. Ventral Wall: No significant ventral hernia. Abdominal Nodes: No retroperitoneal or mesenteric adenopathy by size criteria. Vessels: Aorta and inferior vena cava are normal in size. PELVIS: Pelvic Organs: There is suggestion of a 2.4 x 2.1 cm left ovarian cyst. Bladder: No bladder wall thickening, accounting for underdistention. Pelvic Nodes: No enlarged lymph nodes. Miscellaneous: No inguinal hernias are seen. Bones: No aggressive osseous abnormality. IMPRESSION: 1. Questionable diffuse colonic wall thickening concerning for low-grade colitis. Normal appendix. No bowel obstruction. No abscess collection. No free fluid or free air. 2. Hepatic steatosis, no discrete hepatic lesion. 3. Right renal cyst as above. No hydronephrosis or renal stones. 4. Suggestion of a 2.4 x 2.1 cm left ovarian cyst. Dictated by: Chester Buchanan M.D. on 12/07/2023 at 14:57 Approved by: Chester Buchanan M.D. 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 She denied any presence of hemorrhoids noted. She denies any chronic conditions or medication use. Physical exam does show tenderness to palpation in bilateral lower quadrants. She reports a few episodes of diarrhea, a day with borderline fever this last week and increased fatigue. She denies vomiting. She reports feeling increased numbness in her hands which generally happens when she has an nfection. Multiple etiologies for patient's symptoms considered including, but not limited to: UC, crohn's, appendicitis, diverticulitis, ovarian cyst, Prior Charts reviewed: Labs reviewed and interpreted by myself: CBC shows hemoglobin of 16.4 which is similar to values noted in September 2022, PT INR, APTT are within normal limits, CMP is within normal limits, is negative and UA shows no evidence of blood, nitrites or leukocyte esterase, hemoccult is negative. Discussed case with Dr. Doyle. Patient has no focal tenderness, normal vital signs. Recommend checking stool PCR and CT abdomen and pelvis with contrast. Stool panel shows no positive findings. Imaging reviewed: CT abdomen and pelvis showed evidence of unchanged simple renal cyst in the right side, [id number] hepatic steatosis, suggestion of a left-sided ovarian cyst which is 2.4 x 2.1 cm. And possible low-grade colitis. Appendix is visualized and seems to be normal. No evidence of bowel obstruction or abscess or free fluid or air. Discussed with patient that she is clear to go home. No evidence of appendicitis. Symptoms are most likely due to a mild colitis noted on CT versus possible ovarian cyst. Discussed with patient that these can both self resolve without further intervention, but I recommend further follow up with her primary care provider. Recommend bland diet and increased fluid intake and rest. Advised her to return to the ED if she should develop fever, severe abdominal pain, return of significant amount of blood in her stool, persistent vomiting or other concerning signs or symptoms. She has been given 4 mg of Zofran prior to discharge. Patient's symptoms improved over duration of stay with above-stated therapies. Findings and discharge diagnosis discussed with patient/family followed by verbalization of understanding Return precautions discussed with patient/family whom verbalize understanding of diagnosis and plan <Scooby Doyle MD - Last Filed: 12/07/23 19:04> Lab Data Labs: Lab Results 12/07/23 12/07/23 12/07/23 Range/Units 12:40 13:00 14:38 WBC 8.0 (4.5-11.0) X10^3/uL RBC 4.93 (4.0-5.2) X10^6/uL Hgb 16.4 H (12.0-16.0) g/dL Hct 47.2 H (36-46) % MCV 95.9 (80-100) fL MCH 33.2 (26-34) PG MCHC 34.7 (30-36) % RDW 13.1 (11.6-14.8) % Plt Count 205 (150-400) X10^3/uL Neut % (Auto) 63.4 (50-75) % Lymph % (Auto) 27.6 (25-40) % Chambers % (Auto) 6.8 (3-14) % Eos % (Auto) 1.8 L (2-4) % Baso % (Auto) 0.4 (0-2) % Neut # (Auto) 5000 (6243-0670) /uL Lymph # (Auto) 2200 (0000-6561) /uL Chambers # (Auto) 500 (0-900) /uL Eos # (Auto) 100 (0-450) /uL Baso # (Auto) 0 (0-100) /uL PT 11.1 (9.4-12.5) SECONDS INR 1.0 (0.9-1.3) APTT 34 (25.1-36.5) SECONDS Sodium 139 (137-145) mmol/L Potassium 3.9 (3.4-5.1) mmol/L Chloride 110 H (98-107) mmol/L Carbon Dioxide 26 (22-32) mmol/L BUN 12 (7-17) mg/dL Creatinine 0.64 (0.52-1.04) mg/dL Estimated GFR > 60 (>60) mL/min BUN/Creatinine Ratio 18.8 (6-22) Glucose 108 H (70-100) mg/dL Calcium 9.8 (8.4-10.2) mg/dL Total Bilirubin 0.8 (0.2-1.3) mg/dL AST 31 (14-36) IU/L ALT 17 (<35) IU/L Alkaline Phosphatase 62 (38-126) U/L Total Protein 7.3 (6.3-8.2) g/dL Albumin 4.2 (3.5-5.0) g/dL Globulin 3.1 (1.7-4.1) g/dL Albumin/Globulin Ratio 1.4 (1.0-2.8) Lipase 72 (23-300) U/L Urine RBC 0-1/hpf (0-5/HPF) Urine WBC 0-1/hpf (0-5/HPF) Ur Squamous Epith Cells 1-5 /hpf (0-5/HPF) Amorphous Sediment 2+ Urine Bacteria Few (2-10) H (None) Ur Culture Indicated? Cult not indicated Vol Urine Centrifuged 10ml (spun) Stl C. cayetanensis PCR Not detected (Not Detect) Stool Rotavirus (PCR) Not detected (Not Detect) Stool Adenovirus (PCR) Not detected (Not Detect) Stool Astrovirus (PCR) Not detected (Not Detect) Stool Cryptosporidium PCR Not detected (Not Detect) Stl E.coli Shiga Tox PCR Not detected (Not Detect) St Sh/Enteroin Ecoli PCR Not detected (Not Detect) Stl Enterotoxigenic E PCR Not detected (Not Detect) Stool EPEC (PCR) Not detected (Not Detect) Stl E. histolytica PCR Not detected (Not Detect) Stool Giardia Lamblia PCR Not detected (Not Detect) Stool Sapovirus (PCR) Not detected (Not Detect) Stl P. shigelloides PCR Not detected (Not Detect) St Y.enterocolitica PCR Not detected (Not Detect) Stool Vibrio (PCR) Not detected (Not Detect) Stl Vibrio cholerae PCR Not detected (Not Detect) Stl Enteroaggr Ecoli PCR Not detected (Not Detect) Stl Norovirus GI/GII PCR Not detected (Not Detect) Campylobacter (PCR) Not detected (Not Detect) C. difficile Tox (PCR) Not detected (Not Detect) Salmonella (PCR) Not detected (Not Detect) Blood Type Cancelled Rho(D) Type Cancelled Antibody Screen Cancelled Point of Care Testing Test Results Negative Stool Occult Blood Negative Urine Dip Bedside Urine Glucose Negative Bedside Urine Bilirubin - Negative Bedside Urine Ketone - Negative Urine Specific [place] 1.015 Bedside Urine Occult Blood - Negative Bedside Urine pH 7.0 Bedside Urine Protein +/- 15 Bedside Urine Urobilinogen - Negative Bedside Urine Nitrite - Negative Bedside Urine Leukocytes - Negative Esterase Discharge Plan Departure Patient Disposition: Home Clinical Impression: Colitis Ovarian cyst Qualifiers: Laterality: left Qualified Code(s): N83.202 - Unspecified ovarian cyst, left side Activity Restrictions/Additional Instructions: Thank you for coming in today for your care. You have been diagnosed with colitis and an ovarian cyst. You came in to be evaluated today for abdominal discomfort the last 2 days and blood in your stool this morning. Blood work was reassuring and did not show any signs of anemia, electrolytes are normal, and urinalysis did not show any sign of infection. We proceeded to do imaging of your abdomen and pelvis due to the report of lower abdominal pain and blood in stool. Imaging showed evidence of colitis. This is an inflammation of the colon which does not need to be treated with antibiotics. This should self resolve without further treatment. I recommend a bland diet with increased fluids and follow up with your PCP to monitor resolution. Your stool evaluation did not show any positive results necessitating antibiotic treatment. CT imaging also showed suggestion of a 2.4 x 2.1 left ovarian cyst. This could be contributing to some of your discomfort. It is possible that this ovarian cysts can resolve without any treatment. I would recommend further follow up with your primary care provider for monitoring. Other findings of note include a right renal cyst which was described as simple in appearance and unchanged from prior study. No further follow up recommended. There was also noted some mild to moderate hepatic steatosis. I recommend further follow up with your primary care regarding monitoring for this. Your liver enzymes were within normal limits today which is reassuring. *Please follow up with your primary care provider in 2-3 days, call for an appointment. Let them know you were seen in the Emergency Department and that we ask that you be seen in follow up. We will electronically transmit a record of today's note if your PCP is in our system *If you do not have a primary care provider please contact the [facility] Resource line at [phone]. They will ask some questions about your medical history and help get you set up with a doctor in the community. *Return to Emergency Department if you should have any new, worsening or concerning symptoms, such as [fever greater than 101 F, shaking chills, worsening pain, persistent vomiting or other bothersome symptoms] Prescriptions: New ondansetron HCl 4 mg tablet 4 mg PO Q8H PRN (Reason: nausea and vomiting) Qty: 7 0RF Referrals: Adina Chanel ARNP [Primary Care Provider] - Stand Alone Forms: Patient Portal/API ED Sign-out <Scooby Doyle MD - Last Filed: 12/07/23 19:04> Cosign ED Attending Beto Attestation: I was immediately available in the department for consultation. Documentation has been reviewed. I agree with assessment and plan.
[2023-12-07 13:51] LABS: Bacteria Urine Few (2-10); RBC Urine 0-1/HPF (0-5/HPF); Squamous Epithelial Cell Urine 1-5 /HPF (0-5/HPF); Urine Volume 10mL (spun); WBC Urine 0-1/HPF (0-5/HPF)
[2023-12-07 13:52] LABS: Amorphous Sediment Urine 2+; Culture Indicated Urine Cult Not Indicated
--- NOTE | 2023-12-07 14:14 | DI.CT.S_ITS ---
PROCEDURE: CT ABDOMEN PELVIS W CON INDICATIONS: Lower abdominal discomfort x 2 days TECHNIQUE: After the administration of intravenous contrast, axial sections acquired from the lung bases to the pubic symphysis. Coronal and sagittal reformats were performed. For radiation dose reduction, the following was used: automated exposure control, adjustment of mA and/or kV according to patient size. COMPARISON: [facility], CT, CT ABDOMEN PELVIS W CON, 07/01/2021, 19:55. FINDINGS: Image quality: Diagnostic. Lower Chest: No significant findings. ABDOMEN: Liver: No solid mass. [id number] hepatic steatosis is seen. Gallbladder: No radiopaque gallstones or wall thickening. Biliary ducts: No biliary dilation. Pancreas: No ductal dilation. Spleen: Size is within normal limits. Adrenal Glands: No adrenal nodules. Kidneys and Ureters: No hydronephrosis. No solid mass. 1.4 cm simple appearing right renal cortical cyst is again seen unchanged from prior study. No complex renal cystic lesion which requires follow up. Stomach and Bowel: There is no bowel obstruction. No abnormal bowel wall thickening or mesenteric fat stranding. Appendix is visualized and is within normal limits. Questionable mild diffuse colonic wall thickening is seen without significant pericolonic fat stranding. Mild sigmoid diverticulosis is seen without pericolonic fat stranding . No abscess collection. Peritoneum: No abnormal intraperitoneal fluid. No free air. Ventral Wall: No significant ventral hernia. Abdominal Nodes: No retroperitoneal or mesenteric adenopathy by size criteria. Vessels: Aorta and inferior vena cava are normal in size. PELVIS: Pelvic Organs: There is suggestion of a 2.4 x 2.1 cm left ovarian cyst. Bladder: No bladder wall thickening, accounting for underdistention. Pelvic Nodes: No enlarged lymph nodes. Miscellaneous: No inguinal hernias are seen. Bones: No aggressive osseous abnormality. IMPRESSION: 1. Questionable diffuse colonic wall thickening concerning for low-grade colitis. Normal appendix. No bowel obstruction. No abscess collection. No free fluid or free air. 2. Hepatic steatosis, no discrete hepatic lesion. 3. Right renal cyst as above. No hydronephrosis or renal stones. 4. Suggestion of a 2.4 x 2.1 cm left ovarian cyst. Dictated by: Chester Buchanan M.D. on 12/07/2023 at 14:57 Approved by: Chester Buchanan M.D. on 12/07/2023 at 15:00
[2023-12-07 14:22] LABS: Lipase 72 U/L (23-300)
[2023-12-07 15:04] VITALS: BP 127/77; PULSE 70; RESP 16; TEMP 36.9; O2SAT 99
[2023-12-07 16:01] LABS: Adenovirus F 40/41 Not Detected (Not Detect); Astrovirus Not Detected (Not Detect); Campylobacter Not Detected (Not Detect); Clostridium difficile toxin AB Not Detected (Not Detect); Cryptosporidium Not Detected (Not Detect); Cyclospora cayetanensis Not Detected (Not Detect); Entamoeba histolytica Not Detected (Not Detect); Enteroaggregative E.coli Not Detected (Not Detect); Enteropathogenic E.coli Not Detected (Not Detect); Enterotoxigenic E.coli It/st Not Detected (Not Detect); Giardia lamblia Not Detected (Not Detect); Norovirus GI/GII Not Detected (Not Detect); Plesiomonsa shigelloides Not Detected (Not Detect); Rotavirus A Not Detected (Not Detect); Salmonella Not Detected (Not Detect); Sapovirus Not Detected (Not Detect); Shiga-like toxin-prod E.coli Not Detected (Not Detect); Shigella/Enteroinvasive E.coli Not Detected (Not Detect); Vibrio Not Detected (Not Detect); Vibrio cholerae Not Detected (Not Detect); Yersinia enterocolitica Not Detected (Not Detect)
[2023-12-07] MEDS: ONDANSETRON 4 MG/2 ML INJ IV (16:29)
== END 2023-12-07 16:29 | disposition home or self-care (01) ==
PROVIDERS: Emergency Medicine; Emergency Provider Physician Assistant; PCP Nurse Practitioner Family
DX: K52.9 Noninfective gastroenteritis and colitis, unspecified (principal); N83.202 Unspecified ovarian cyst, left side
CPT/HCPCS: 36415; 74177; 80053; 81003; 81015; 81025; 82272; 83690; 85025; 85610; 85730; 87507; 96374; 99284; J2405; Q9967